=== PATIENT | female | born 1955 | race Caucasian/White ===

== ENCOUNTER → 2017-06-18 09:28 | Outpatient (CLI) | payer OTHER, SELFPAY ==
--- NOTE | 2017-06-18 09:29 | HPBI_ITS ---
MAMMOGRAPHY - BILATERAL SCREENING REASON FOR EXAM: Female, 61 years old. Routine annual screening examination. PERTINENT HISTORY: Non-contributory. TECHNIQUE: Digital bilateral breast karlos (3D mammographic acquisition) in the CC and MLO projections. 2-D mediolateral oblique (MLO) and craniocaudad (CC) views of both breasts were obtained. CAD: Full Field Digital Mammography with Computer Added Detection was performed. COMPARISON: Comparison is made with prior examination dated February 15, 2016. FINDINGS: Breast Composition: There are scattered areas of fibroglandular density. Stable benign-appearing bilateral axillary lymph nodes. Stable appearance of the small nodular densities in the upper outer aspects of both breasts. Prior ultrasound demonstrated these to be small cysts. No other significant abnormalities are identified. There has been no significant change since the prior study. HPBI/SCREENING MAMM (CAD), BILAT IMPRESSION: Stable bilateral screening mammogram. Yearly follow-up mammogram recommended. (A) ASSESSMENT CATEGORY: BIRADS Category 2: Benign. A letter regarding these results will be sent to the patient by the facility within 30 days. Approximately 10% of breast cancers are not detected by mammography. A normal mammogram should not delay biopsy of a clinically suspicious abnormality. [id number] Electronically Signed: Adam Lee MD at 11:33 EST Tel [phone], Service support ,
--- NOTE | 2017-06-18 09:44 | HPBD_ITS ---
STUDY: DUAL ENERGY X-RAY ABSORPTIOMETRY / DXA REASON FOR EXAM: Female, 61 years old. The patient is postmenopausal. No loss of height. TECHNIQUE: Bone Mineral Density (BMD) measurements of lumbar spine and bilateral hips were obtained. COMPARISON: None. FINDINGS: Lumbar Spine (L1-L4): g/cm2 (1.110) / T-score (-0.6) / Z-score (0.8) Findings are suggestive of normal bone density with a low fracture risk. Left Femur Total: g/cm2 (0.889) / T-score (-0.9) / Z-score (0.1) Left Femoral Neck: g/cm2 (0.789) / T-score (-1.8) / Z-score (-0.4) Right Femur Total: g/cm2 (0.916) / T-score (-0.7) / Z-score (0.4) Right Femoral Neck: g/cm2 (0.846) / T-score (-1.4) / Z-score (0.0) HPBD/Dexa Bone Density Study (HP) IMPRESSION: The patient is considered osteopenic as outlined below according to World Leno Organization (WHO) criteria with a moderate fracture risk. Reference Information: The T-score is the number of standard deviations above or below the standard which is normal for young adults at their peak bone mineral density. The World Health Organization (WHO) interprets the T-scores as follows: Above -1 Normal bone density Between -1 and -2.5 Osteopenia Equal to / or below -2.5 Osteoporosis As a practical clinical guideline, osteopenia may be graded as follows: Mild -1 through -1.5 Moderate -1.6 through -2.0 Severe -2.1 through -2.4 The Z-score is the number of standard deviations above or below age-matched controls. A Z-score of less than -1.5 would be considered abnormal. References: 1. NIH Osteoporosis and Related Bone Diseases http://www.osteo.org 2. International Society for Clinical Densitometry http://www.iscd.org 3. National Osteoporosis Foundation http://www.nof.org Electronically Signed: Adam Lee MD at 11:15 EST Tel [phone], Service support ,
== END ==
PROVIDERS: Family Provider Internal Medicine; PCP Internal Medicine; Visit Provider Internal Medicine
DX: Z12.31 Encounter for screening mammogram for malignant neoplasm of breast (principal); Z78.0 Asymptomatic menopausal state
CPT/HCPCS: 77063; 77067; 77080

== ENCOUNTER → 2018-06-16 | Outpatient (CLI) | payer OTHER, SELFPAY | END | disposition home or self-care (01) | LOC: PSN 11:14 | PROVIDERS: Family Provider Internal Medicine; PCP Internal Medicine; Referring Provider Internal Medicine; Visit Provider Internal Medicine | DX: I49.3 Ventricular premature depolarization (principal) | CPT/HCPCS: 93225; 93226 ==

== ENCOUNTER → 2018-07-09 06:35 | Outpatient (CLI) | payer OTHER, SELFPAY ==
--- NOTE | 2018-07-09 06:43 | ECHOD_ITS ---
Reason For Study: Arrhythmia Procedure This was a 2D Doppler, Color Flow transthoracic echocardiogram. Exam performed in department. Left Ventricle Normal size and thickness. The estimated ejection fraction is 65 %. Stage 1 diastolic dysfunction. No regional wall motion abnormalities noted. Right Ventricle Normal size and thickness. Normal systolic function. Atria Normal left atrium. Normal right atrium. Normal atrial septum. Mitral Valve The mitral valve is structurally normal. No prolapse or stenosis seen. Mild (1+) eccentric mitral valve insufficiency. Tricuspid Valve Normal tricuspid valve. Trivial tricuspid valve insufficiency. Right ventricular systolic pressure estimated to be 27 mmHg. Aortic Valve Normal aortic valve. Trisinus/trileaflet aortic valve. Pulmonic Valve Normal pulmonic valve. Great Vessels Normal aortic root. Normal arch. Normal inferior vena cava. Inferior vena cava collapse with sniff. Pericardium/Pleural No pericardial effusion. MMode/2D Measurements & Calculations LVIDd: 5.0 cm IVSd: 0.94 cm Ao root diam: 2.6 cm LVIDs: 3.1 cm LVPWd: 0.88 cm RVDd: 2.6 cm FS: 38.0 % LAV(MOD-bp): 46.6 ml LVAd ap4: 19.6 cm2 SV(MOD-sp4): 38.9 ml LAV(MOD-bp) Indexed: 26.1 ml/m2 EDV(MOD-sp4): 54.7 ml LAV(MOD-sp2): 46.8 ml EDV(sp4-el): 56.1 ml LAV(MOD-sp4): 43.4 ml LVAs ap4: 9.6 cm2 ESV(MOD-sp4): 15.8 ml ESV(sp4-el): 15.7 ml EF(MOD-sp4): 71.2 % EF(sp4-el): 71.9 % SV(sp4-el): 40.4 ml LA A4 area: 17.2 cm2 LA dimension(2D): 3.3 cm RA A4 area: 14.0 cm2 Doppler Measurements & Calculations MV E max jose cruz: 72.3 cm/sec Lat Peak E' Jose Cruz: 6.8 cm/sec Med Peak E' Jose Cruz: 5.7 cm/sec MV A max jose cruz: 90.1 cm/sec E/E' lat: 10.7 E/E' med: 12.7 MV E/A: 0.80 Ao V2 max: 135.1 cm/sec LV V1 max: 121.1 cm/sec PA V2 max: 79.3 cm/sec Ao max P.3 mmHg LV V1 max P.9 mmHg Ao V2 mean: 101.2 cm/sec Ao mean P.4 mmHg Ao V2 VTI: 31.3 cm TR max jose cruz: 232.5 cm/sec TR max P.6 mmHg Interpretation Summary The estimated ejection fraction is 65 %. Stage 1 diastolic dysfunction. Mild (1+) eccentric mitral valve insufficiency. Trivial tricuspid valve insufficiency. Right ventricular systolic pressure estimated to be 27 mmHg. Compard to echo report dated 07/07/2005, no appreciable changes noted. Ordering Physician: Alyson Stanley Referring Physician: Alyson Stanley Performed By: Sherie Ernst, ELIZA, RVT
--- NOTE | 2018-07-09 17:54 | STRESSREP ---
Stress Test Report Exercise myocardial perfusion stress test. 63-year-old lady with a history of abnormal EKG and cardiac arrhythmias. Medications: Fish oil fluticasone Proventil. Stress protocol: Resting EKG demonstrates normal sinus rhythm with a rate of 75 bpm normal intervals are noted resting blood pressure 130/88 mmHg. The patient exercised according to regular Sree protocol total duration of 7 minutes. Patient completed 1 minute into stage III of the Sree protocol. The patient maintained sinus rhythm until approximately 6 minutes and 52 seconds into the exercise. The patient then went into a narrow complex tachycardia with a rate of approximately 226 bpm. The test was terminated at this stage. This lasted for approximately 45 seconds. It appeared to be consistent with a narrow complex tachycardia with a rate of approximately 210 bpm. The patient then broke into a sinus tachycardia with a rate of 146 bpm. Occasional premature atrial complexes were noted. At rest and during peak exercise upsloping ST changes only were noted we did not meet the criteria for ischemia. The resting blood pressure 130/88 with a peak blood pressure 158/84. No clinical angina was noted. The conversion from the supraventricular tachyarrhythmia to the normal sinus rhythm was from a vagal maneuver of coughing. Myocardial perfusion protocol. 11.9 mCi of technetium 99 sestamibi was injected at rest. The patient exercised according to regular Sree protocol for 7 minutes at peak exercise 33.6 mCi of technetium 99m sestamibi was injected stress images were obtained stress and rest images were reconstructed and compared in the short axis vertical long horizontal long axis. Gated images were also obtained Perfusion SPECT analysis: Review of the stress images demonstrate normal uptake of tracer noted in all areas of the myocardium. There are no obvious perfusion defects to suggest reversibility or ischemia. Gated SPECT analysis: The gated ejection fraction is noted to be 79%. Conclusion: Normal exercise myocardial perfusion stress test at a moderate workload. Supraventricular tachyarrhythmia noted spontaneously converting with vagal maneuvers. Preserved ejection fraction.
== END ==
PROVIDERS: Family Provider Internal Medicine; PCP Internal Medicine; Referring Provider Internal Medicine; Visit Provider Internal Medicine
DX: I49.9 Cardiac arrhythmia, unspecified (principal)
CPT/HCPCS: 78452; 93017; 93306; A9500; A4216

== ENCOUNTER → 2018-07-11 09:15 | Outpatient (CLI) | payer OTHER, SELFPAY ==
--- NOTE | 2018-07-11 09:19 | BI_ITS ---
MAMMOGRAPHY - BILATERAL SCREENING REASON FOR EXAM: Female, 63 years old. Routine annual screening examination. PERTINENT HISTORY: Non-contributory. TECHNIQUE: Digital bilateral breast karlos (3D mammographic acquisition) in the CC and MLO projections. 2-D mediolateral oblique (MLO) and craniocaudad (CC) views of both breasts were obtained. CAD: Full Field Digital Mammography with Computer Added Detection was performed. COMPARISON: Comparison is made with prior examination dated June 18, 2017 and February 15, 2016. FINDINGS: Breast Composition: There are scattered areas of fibroglandular density. There are no dominant masses or suspicious calcifications. Stable appearance of the small bilateral breast nodules seen in both breasts. Prior sonogram demonstrated these to be cysts. Stable benign-appearing bilateral axillary lymph nodes. No other significant abnormalities are identified. There has been no significant change since the prior study. BI/SCREENING MAMM (CAD), BILAT IMPRESSION: Stable bilateral screening mammogram. Yearly follow-up mammogram recommended. (A) ASSESSMENT CATEGORY: BIRADS Category 2: Benign. A letter regarding these results will be sent to the patient by the facility within 30 days. Approximately 10% of breast cancers are not detected by mammography. A normal mammogram should not delay biopsy of a clinically suspicious abnormality. [id number] Electronically Signed: Adam Lee, at 10:30 EDT , Service support ,
== END ==
PROVIDERS: Family Provider Internal Medicine; PCP Internal Medicine; Referring Provider Internal Medicine; Visit Provider Internal Medicine
DX: Z12.31 Encounter for screening mammogram for malignant neoplasm of breast (principal)
CPT/HCPCS: 77063; 77067

== ENCOUNTER → 2018-12-02 | Outpatient (CLI) | payer OTHER, SELFPAY ==
[2018-07-11 12:28] VITALS: BMI 32.5
--- NOTE | 2018-12-02 13:39 | RAD_ITS ---
STUDY: X-RAY - LEFT FOOT CLINICAL: Female, 63 years old. Swelling and bruising of the foot following injury. TECHNIQUE: 3 view(s) of the foot. COMPARISON: Comparison is made with prior study of October 27, 2010. FINDINGS: There is an enthesophyte involving the posterior superior calcaneus at the site of insertion of the Achilles tendon. Normal visualized subtalar, talonavicular, calcaneocuboid, tarsal and tarsometatarsal articulations. Nondisplaced comminuted fractures at the base of the second third and fourth metatarsals. There is degenerative arthrosis of the metatarsophalangeal joint of the hallux with a hallux valgus deformity. Normal tibial and fibular sesamoid bones. Normal interphalangeal joint of the great toe. Normal phalanges of the great toe. Normal second through fifth metatarsophalangeal joints. Normal interphalangeal joints and phalanges of the lesser toes. Diffuse soft tissue swelling. RAD/Foot min 3 Views IMPRESSION: Nondisplaced transverse fracture involving the base of the second third and fourth metatarsals. Soft tissue swelling. Electronically Signed: Adam Lee, at 14:12 EDT , Service support ,
== END | disposition home or self-care (01) ==
LOC: HPRAD 13:36
PROVIDERS: Family Provider Internal Medicine; PCP Internal Medicine; Referring Provider Internal Medicine; Visit Provider Internal Medicine
DX: M79.672 Pain in left foot (principal)
CPT/HCPCS: 73630

== ENCOUNTER → 2019-01-06 11:17 | Outpatient (CLI) | payer OTHER, SELFPAY ==
[2018-07-11 12:28] VITALS: BMI 32.5
--- NOTE | 2019-01-06 11:21 | RAD_ITS ---
STUDY: X-RAY - LEFT FOOT CLINICAL: Female, 63 years old. Follow-up fracture TECHNIQUE: 3 view(s) of the foot. COMPARISON: 12/02/2018 FINDINGS: Normal talus, calcaneus, and tarsal bones. Normal visualized subtalar, talonavicular, calcaneocuboid, tarsal and tarsometatarsal articulations. Healing nondisplaced transverse fractures of the base of the second, third, and fourth metatarsal bones with some sclerosis and bony bridging. Normal metatarsophalangeal joint of the great toe. Normal tibial and fibular sesamoid bones. Normal interphalangeal joint of the great toe. Normal phalanges of the great toe. Normal second through fifth metatarsophalangeal joints. Normal interphalangeal joints and phalanges of the lesser toes. The soft tissue structures are unremarkable. RAD/Foot min 3 Views IMPRESSION: Healing nondisplaced transverse fractures of the base of the left second, third, and fourth metatarsal bones. Electronically Signed: Romaine Bradley MD at 8:32 EDT Tel , Service support ,
== END ==
PROVIDERS: Family Provider Internal Medicine; PCP Internal Medicine; Referring Provider Podiatrist; Visit Provider Podiatrist
DX: S92.302D Fracture of unspecified metatarsal bone(s), left foot, subsequent encounter for fracture with routine healing (principal)
CPT/HCPCS: 73630

== ENCOUNTER 2021-06-16 13:20 | Emergency (ER) | payer MEDICARE, OTHER, SELFPAY ==
[2021-06-16 13:21] VITALS: BP 149/83; PULSE 76; RESP 15; TEMP 36.3; O2SAT 97; BMI 31.9
--- NOTE | 2021-06-16 13:40 | EDS_ITS ---
HPI History of Present Illness Chief Complaint: Fall Detail of Chief Complaint: Fall with injury to left wrist Informant: patient Narrative Narrative: Patient presents the emergency department after sustaining a mechanical fall this morning around 10 AM. Patient states that she slipped and fell forward and attempted to catch herself with her left wrist injuring it. Patient is right-hand dominant. She denies striking her head or loss c onsciousness. She denies neck pain or chest pain or abdominal pain. [facility] Medical History (Updated 06/16/21 @ 14:[address] Andrae Stephens DO) Anemia Anxiety Arthritis Asthma Elevated LFTs Frequent PVCs GERD (gastroesophageal reflux disease) Hyperlipidemia Intermittent palpitations Liver nodule Lung nodule Obesity Paroxysmal supraventricular tachycardia Premature ventricular contractions Home Medications cholecalciferol (vitamin D3) 1,250 mcg (50,000 unit) capsule 50,000 unit PO QWEEK 07/10/18 [History Last Taken Unknown] joint supplement PO 07/11/18 [History Last Taken Unknown] omega-3 fatty acids 1,000 mg capsule 1,000 mg PO DAILY PRN 07/11/18 [History Last Taken Unknown] fluticasone propionate 50 mcg/actuation nasal spray,suspension 1 spray INTRANASAL DAILY ml 10/06/19 [History Last Taken Unknown] citalopram 10 mg tablet 10 mg PO DAILY tab 12/16/20 [History Last Taken Unknown] famotidine 20 mg tablet 20 mg PO BID tab 12/16/20 [History Last Taken Unknown] hydrocodone-acetaminophen 1 tab PO Q4H PRN PRN 2 Days #10 tablet 06/16/21 [Rx Last Taken Unknown] Allergy/AdvReac Type Severity Reaction Status Date / Time guaifenesin [From Robitussin] AdvReac Rash Verified 12/16/20 10:33 pseudoephedrine HCl AdvReac Swelling Verified 12/16/20 10:33 [From Actifed] triprolidine HCl AdvReac Swelling Verified 12/16/20 10:33 [From Actifed] Family History Mother Heart disease afib Grandmother Heart disease afib Surgical History History of Social History Smoking Status: Never smoker ROS ROS ED Constitutional Constitutional ED: Reports systems reviewed and no addt'l complaints, except as documented; Denies body ache(s), change in weight or chills Eyes Eyes: Denies acute decrease in peripheral vision, change in vision, double vision or loss of vision ENT ENT ED: Reports none; Denies ear pain, lip swelling, loss taste/smell, neck pain, otalgia or sore throat Cardiovascular Cardiovascular: Reports none; Denies abdominal pain, chest pain with activity, leg edema, lightheadedness, palpitations, rapid heart rate or syncope Respiratory/Chest Respiratory/Chest: Reports none; Denies change in mental status, dry cough, dy spnea, hemoptysis, shortness of breath at rest or shortness of breath with exertion Gastrointestinal Gastrointestinal: Reports none; Denies abdominal pain, change in stool character, diarrhea, hematemesis, hematochezia, melena, rectal bleeding or vomiting Genitourinary Genitourinary ED: Reports none; Denies abdominal discomfort, anuria, dysuria, genital pain or polyuria Musculoskeletal Musculoskeletal: Reports none and other Details: Left wrist pain ; Denies arthralgias, back pain, difficulty walking, extremity pain, muscle weakness or myalgias Integumentary Reports none; Denies abscess or rash Neurologic Neurologic: Reports none; Denies abnormal gait, confusion, focal weakness, frequent falls, headache(s), loss of vision, numbness, paresthesias, radicular pain, vertigo or weakness Psychiatric Psychiatric: Reports systems reviewed and no addt'l complaints, except as documented and none; Denies behavioral changes, confusion, difficulty concentrating, hallucinations, suicidal ideation, tactile hallucinations or visual hallucinations Endocrine Endocrinology: Denies none, cold intolerance, excessive sweating, fatigue or heat intolerance Hematologic/Lymphatic Hematologic/Lymphatic: Reports none; Denies anemia, easy bleeding or easy b ruising Allergic/Immunologic Allergic/Immunologic ED: Denies as per HPI, none, lip swelling, mouth swelling, throat swelling, tongue swelling or hives EXAM Physical Exam Const Vital Signs: 06/16/21 13:21 Temperature 97.3 F L Temperature Source Temporal Pulse Rate 76 Respiratory Rate 15 Blood Pressure 149/83 H Blood Pressure Mean 105 Pulse Ox 97 Oxygen Delivery Method Room Air Positive well nourished and well developed General Appearance ED: well developed and NAD HEENT Reports TM's clear and moist mucous membranes normocephalic and atraumatic; Negative for trauma or tenderness Tympanic Membrane ED: Yes TM's clear Eyes PERRL and EOMs intact bilaterally General Eye ED: Negative for pale conjunctiva or scleral icterus Neck no lymphadenopathy, supple and no JVD General: Negative for tenderness Chest Wall inspection of chest normal and palpation of chest normal Chest: Negative for tenderness Resp normal respiratory effort and clear to auscultation bilaterally Effort and Inspection: Negative for respiratory distress or pain with movement Auscultation: Negative for rhonchi, wheezes or diminished lung sounds Cardio regular rate, regular rhythm, S1 normal heart sound, S2 normal heart sound and no murmurs Peripheral Pulses: pulses 2+ throughout GI normal to inspection, nondistended, normoactive bowel sounds, soft to palpation, non-tender, non-distended and no masses Back/Spine no CVA tenderness and no thoracic nor lumbar tenderness Extremity Extremity Narrative: Evaluation of the left wrist reveals diffuse soft tissue swelling with tenderness over the distal radius. Patient has limited range of motion flexion extension secondary to pain. She is neurovascular intact distally with normal range of motion in all digits. Patient has no pain at the elbow. General Extremety ED: Negative for edema General Extremity: Negative for edema Neuro oriented x3, CN's II-XII intact bilaterally, no sensory deficits noted and gait normal Sensorium / Orientation: awake, alert, oriented to person, oriented to place and oriented to time Motor Exam: strength 5/5 throughout and strength abnormal Psych mental status grossly normal Skin no rashes or lesions noted and no wounds MDM MDM MDM Narrative Medical decision making narrative: Patient was placed in an AP splint that was fabricated by myself out of [employer]. Case was discussed with orthopedic surgeon on-call Dr. Edward Dye who evaluated the x-rays and will see patient in the office. Radiography Diagnostic Testing: Three-view x-rays of the left wrist showed a comminuted fracture of the distal radius that is intra-articular with no significant displacement noted. Official report from radiology pending. Discharge Plan Triage Chief Complaint: Fall ED Provider: Andrae Stephens Dx/Rx/DC Orders Clinical Impression: Distal radial fracture Instructions: ED Colles Fracture No Reduction ... Prescriptions: New hydrocodone-acetaminophen [hydrocodone-acetaminophen] 1 TABLET tablet 1 tab PO Q4H PRN PRN (Reason: Pain) 2 Days Qty: 10 RF: 0 No Action joint supplement PO RF: 0 cholecalciferol (vitamin D3) 50,000 unit capsule 50,000 unit PO QWEEK RF: 0 omega-3 fatty acids [Fish Oil Concentrate] 1,000 mg capsule 1,000 mg PO DAILY PRNRF: 0 fluticasone propionate 50 mcg/actuation spray,suspension 1 spray INTRANASAL DAILY RF: 0 famotidine 20 mg tablet 20 mg PO BID RF: 0 citalopram 10 mg tablet 10 mg PO DAILY RF: 0 Primary Care Provider: Alyson Stanley Referrals: Alyson Stanley DO [Primary Care Provider] - Edward Dye MD [STAFF PHYSICIAN] - 3-5 Days Disposition Disposition: Home, Self Care
--- NOTE | 2021-06-16 14:02 | RAD_ITS ---
STUDY: X-RAY - LEFT WRIST REASON FOR EXAM: Left wrist injury today. TECHNIQUE: 3 view(s) of the wrist were obtained. COMPARISON: None. FINDINGS: There is osteopenia. There is a nondisplaced fracture of the distal radius. Normal radiocarpal articulation. Normal distal radioulnar articulation. Normal carpal bones. There is mild joint space narrowing of the triscaphe articulation. There is joint space narrowing and subchondral cystic change of the carpometacarpal articulation of the thumb. Normal second through fifth carpometacarpal articulations. Normal visualized metacarpal bones. There is soft tissue swelling. RAD/Wrist min 3 Views IMPRESSION: Nondisplaced distal radial fracture. 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 Electronically Signed: Kamari Arenas MD at 14:42 EST ,
== END 2021-06-16 14:27 | disposition home or self-care (01) ==
PROVIDERS: Emergency Provider Emergency Medicine; PCP Internal Medicine; Visit Provider Emergency Medicine
DX: S52.502A Unspecified fracture of the lower end of left radius, initial encounter for closed fracture (principal); W01.0XXA Fall on same level from slipping, tripping and stumbling without subsequent striking against object, initial encounter; E78.5 Hyperlipidemia, unspecified; D64.9 Anemia, unspecified; K21.9 Gastro-esophageal reflux disease without esophagitis; F41.9 Anxiety disorder, unspecified; E66.9 Obesity, unspecified; Z79.899 Other long term (current) drug therapy
CPT/HCPCS: 29126; 29125; 73110; 99282

== ENCOUNTER 2021-07-28 12:49 | Outpatient (CLI) | payer MEDICARE, OTHER, SELFPAY ==
--- NOTE | 2021-07-28 12:55 | VDUE_ITS ---
Reason For Study: Swelling Left Proximal Left jugular vein is spontaneous, widely patent, phasic, with no intraluminal echogenicity noted. Left subclavian vein is spontaneous, widely patent, phasic, with no intraluminal echogenicity noted. Left Arm Left axillary vein is spontaneous, patent, phasic, competent, compressible and demonstrates augmentation. Left brachial vein is compressible. Left cephalic vein is compressible. Left basilic vein is compressible. Left Lower Arm Left radial vein is compressible. Left ulnar vein is compressible. Patient Safety Preliminary report to Jaden. VL/Venous Duplex US, Unilateral Interpretation Summary Deep veins of the left upper extremity are patent and compressible segmentally. There is no evidence of deep vein thrombosis. The superficial veins of the left upper extremity, the basilic and cephalic veins, are patent and compressible. There is no evidence of left upper extremit y superficial thrombophlebitis involving the veins imaged. Ordering Physician: Alyson Stanley Referring Physician: Alyson Stanley Performed By: Daisy Montana RVAdore ?
== END 2021-07-28 23:59 | disposition home or self-care (01) ==
LOC: CVS 12:50
PROVIDERS: PCP Internal Medicine; Referring Provider Internal Medicine; Visit Provider Internal Medicine
DX: M79.89 Other specified soft tissue disorders (principal)
CPT/HCPCS: 93971

== ENCOUNTER → 2021-11-15 | Outpatient (CLI) | payer MEDICARE, OTHER, SELFPAY ==
--- NOTE | 2021-11-15 14:52 | RAD_ITS ---
EXAM: XR LEFT SHOULDER COMPLETE, 2 OR MORE VIEWS CLINICAL INDICATION: PAIN TECHNIQUE: Two or more views of the left shoulder. This report was created using [employer] report generation technology. COMPARISON: None. FINDINGS: BONES/JOINTS: Degenerative changes of the left shoulder with inferiorly projecting osteophyte at the inferior glenohumeral joint on external rotation view, minimal sclerotic changes of the humeral head. No narrowing of the subacromial space or humeral head subluxation, no evidence of rotator cuff impingement or tear. No acute fracture. SOFT TISSUES: Unremarkable. No soft tissue swelling or gas. No radiopaque foreign body. LUNGS AND PLEURAL SPACES: Mild linear atelectasis or scar in the left lateral mid to lower lung and a few calcified granulomas in the left lung. RAD/Shoulder min 2 Views IMPRESSION: Mild-moderate degenerative changes of the shoulder, especially at the inferior glenohumeral joint. Electronically Signed: Caroline Johnson MD at 5:32 EDT ,
== END | disposition home or self-care (01) ==
PROVIDERS: PCP Internal Medicine; Referring Provider Internal Medicine; Visit Provider Internal Medicine
DX: M25.512 Pain in left shoulder (principal)
CPT/HCPCS: 73030

== ENCOUNTER → 2021-12-01 | Outpatient (CLI) | payer MEDICARE, OTHER, SELFPAY | END | disposition home or self-care (01) | LOC: PSN 11:37 | PROVIDERS: PCP Internal Medicine; Referring Provider Internal Medicine; Visit Provider Internal Medicine | DX: I49.9 Cardiac arrhythmia, unspecified (principal) | CPT/HCPCS: 93225; 93226 ==

== ENCOUNTER → 2021-12-19 | Outpatient (CLI) | payer MEDICARE, OTHER, SELFPAY ==
--- NOTE | 2021-12-19 14:11 | BI_ITS ---
MAMMOGRAPHY - BILATERAL SCREENING REASON FOR EXAM: Female, 66 years old. Routine annual screening examination. PERTINENT HISTORY: Non-contributory. TECHNIQUE: Digital bilateral breast jimmy (3D mammographic acquisition) in the CC and MLO projections. 2-D mediolateral oblique (MLO) and craniocaudad (CC) views of both breasts were obtained. CAD: Full Field Digital Mammography with Computer Added Detection was performed. COMPARISON: Comparison is made with prior study dated 07/11/2018 and separate . FINDINGS: Breast Composition: There are scattered areas of fibroglandular density. There are no dominant masses or suspicious calcifications. Once again, there are small bilateral well-defined nodular densities in the upper outer quadrant of both breasts more prominent on the left side. Prior sonogram demonstrated these to be small cysts. Stable benign-appearing bilateral axillary lymph nodes. No other significant abnormalities are identified. There has been no significant change since the prior study. BI/SCRN MAMM (CAD)W/JIMMY BILAT IMPRESSION: Stable bilateral screening mammogram. Yearly follow-up mammogram recommended. (A) ASSESSMENT CATEGORY: BIRADS Category 2: Benign. A letter regarding these results will be sent to the patient by the facility within 30 days. Approximately 10% of breast cancers are not detected by mammography. A normal mammogram should not delay biopsy of a clinically suspicious abnormality. [id number] Electronically Signed: Adam Lee MD at 15:25 EDT ,
--- NOTE | 2021-12-19 14:17 | BD_ITS ---
STUDY: DUAL ENERGY X-RAY ABSORPTIOMETRY / DXA REASON FOR EXAM: Female, 66 years old. Z780. Patient is postmenopausal. TECHNIQUE: Bone Mineral Density (BMD) measurements of lumbar spine and bilateral hips were obtained. COMPARISON: Comparison is made with prior study 06/18/2017. FINDINGS: Lumbar Spine (L1-L4): g/cm2 (0.966) / T-score (0.7) / Z-score (1.2) Findings are suggestive of normal bone density with a low fracture risk. Left Femur Total: g/cm2 (0.813) / T-score (-1.1) / Z-score (0.3) Left Femoral Neck: g/cm2 (0.6 x 6) / T-score (-1.7) / Z-score (-0.1) Right Femur Total: g/cm2 (0.854) / T-score (-0.7) / Z-score (0.6) Right Femoral Neck: g/cm2 (0.705) / T-score (-1.3) / Z-score (0.3) The T-Scores on the most recent prior examination were: Lumbar Spine (L1-L4): There has been worsening of bone density since the previous examination. Left Femur Total: which represents a worsening of 1.6%. Right Femur Total: which represents an improvement of 0.1%. BD/Dexa Bone Density Study IMPRESSION: The patient is considered osteopenic as outlined below according to World Leno Organization (WHO) criteria with a moderate fracture risk. There has been worsening of bone density since the previous examination. Reference Information: The T-score is the number of standard deviations above or below the standard which is normal for young adults at their peak bone mineral density. The World Health Organization (WHO) interprets the T-scores as follows: Above -1 Normal bone density Between -1 and -2.5 Osteopenia Equal to / or below -2.5 Osteoporosis As a practical clinical guideline, osteopenia may be graded as follows: Mild -1 through -1.5 Moderate -1.6 through -2.0 Severe -2.1 through -2.4 The Z-score is the number of standard deviations above or below age-matched controls. A Z-score of less than -1.5 would be considered abnormal. References: 1. NIH Osteoporosis and Related Bone Diseases www osteo.org 2. International Society for Clinical Densitometry www iscd.org 3. National Osteoporosis Foundation www nof.org Electronically Signed: Adam Lee MD at 11:08 EDT ,
== END | disposition home or self-care (01) ==
LOC: OPBD 14:09
PROVIDERS: PCP Internal Medicine; Visit Provider Internal Medicine
DX: Z12.31 Encounter for screening mammogram for malignant neoplasm of breast (principal); Z78.0 Asymptomatic menopausal state; M85.80 Other specified disorders of bone density and structure, unspecified site
CPT/HCPCS: 77063; 77067; 77080

== ENCOUNTER → 2021-12-22 | Outpatient (CLI) | payer MEDICARE, OTHER, SELFPAY ==
--- NOTE | 2021-12-22 13:45 | ECHOD_ITS ---
Reason For Study: AFIB Procedure This was a 2D Doppler, Color Flow transthoracic echocardiogram. Exam performed in department. Left Ventricle Normal LV size. The estimated ejection fraction is 55 %. Unable to assess diastolic dysfunction. No regional wall motion abnormalities noted. Right Ventricle Normal RV size. Normal systolic function. Atria Normal left atrium. Normal right atrium. No doppler evidence for ASD. Mitral Valve There is moderate mitral annular calcification. There is no mitral valve stenosis. Trivial mitral valve insufficiency. Tricuspid Valve There is no tricuspid stenosis. Trivial tricuspid valve insufficiency. Unable to estimate RV systolic pressure due to insufficient tricuspid regurgitant envelope. Aortic Valve Trisinus/trileaflet aortic valve. There is no aortic stenosis. No aortic valve insufficiency. Pulmonic Valve There is no pulmonic valvular stenosis. No pulmonic valve insufficiency. Great Vessels Normal aortic root. Pericardium/Pleural No pericardial effusion. MMode/2D Measurements & Calculations LVIDd: 4.9 cm IVSd: 0.80 cm Ao root diam: 3.4 cm LVIDs: 2.9 cm LVPWd: 0.65 cm RVDd: 3.4 cm FS: 40.9 % LAV(MOD-bp): 56.2 ml LVAd ap4: 21.2 cm2 SV(MOD-sp4): 32.9 ml LAV(MOD-bp) Indexed: 31.9 ml/m2 LVLd ap4: 6.3 cm LAV(MOD-sp2): 52.3 ml EDV(MOD-sp4): 57.5 ml LAV(MOD-sp4): 59.6 ml EDV(sp4-el): 60.0 ml LVAs ap4: 11.8 cm2 LVLs ap4: 5.2 cm ESV(MOD-sp4): 24.6 ml ESV(sp4-el): 23.0 ml EF(MOD-sp4): 57.2 % EF(sp4-el): 61.7 % SV(sp4-el): 37.0 ml LA A4 area: 20.1 cm2 LA dimension(2D): 3.4 cm RA A4 area: 13.9 cm2 Time Measurements MV dec time: 0.18 sec Doppler Measurements & Calculations MV E max jose cruz: 91.2 cm/sec Lat Peak E' Jose Cruz: 7.9 cm/sec Med Peak E' Jose Cruz: 7.3 cm/sec MV A max jose cruz: 74.8 cm/sec E/E' lat: 11.5 E/E' med: 12.6 MV E/A: 1.2 MV V2 max: 106.0 cm/sec Ao V2 max: 164.7 cm/sec MV max P.5 mmHg MV dec slope: 498.2 cm/sec2 Ao max P.9 mmHg MV V2 mean: 65.1 cm/sec Ao V2 mean: 110.0 cm/sec MV mean P.9 mmHg Ao mean P.6 mmHg MV V2 VTI: 36.1 cm Ao V2 VTI: 37.8 cm LV V1 max: 129.1 cm/sec PA V2 max: 84.0 cm/sec TR max jose cruz: 265.6 cm/sec LV V1 max P.7 mmHg TR max P.2 mmHg LV V1 mean P.7 mmHg LV V1 mean: 89.6 cm/sec LV V1 VTI: 29.9 cm ECHO/Echo Complete Interpretation Summary The estimated ejection fraction is 55 %. Unable to assess diastolic dysfunction. Trivial mitral valve insufficiency. Ordering Physician: Alyson Stanley Referring Physician: Alyson Stanley Performed By: Shannan Frost RCS
== END | disposition home or self-care (01) ==
LOC: CVS 13:43
PROVIDERS: PCP Internal Medicine; Referring Provider Internal Medicine; Visit Provider Internal Medicine
DX: I48.19 Other persistent atrial fibrillation (principal)
CPT/HCPCS: 93306

== ENCOUNTER → 2022-03-16 | Outpatient (CLI) | payer MEDICARE, OTHER, SELFPAY ==
--- NOTE | 2022-03-16 14:44 | VDLE_ITS ---
Reason For Study: LEG PAIN RIGHT LEFT GSV is normal. CFV is compressible, spontaneous, phasic, CFV is compressible, spontaneous, phasic, competent, and demonstrates normal competent and demonstrates normal augmentation. augmentation. FV is compressible, spontaneous, phasic, competent and demonstrates normal augmentation. POP V is compressible, spontaneous, phasic, competent and demonstrates normal augmentation. T/P Trunk is compressible. PTV is compressible. RT PerV is compressible. Procedure This is a venous duplex using B-mode, color flow and spectral Doppler. Exam performed in department. The exam was diagnostic. A preliminary report was called and/or faxed to Dr. Stanley. VL/Venous Duplex US, Unilateral Interpretation Summary Deep veins of the right lower extremity are patent and compressible segmentally . There is no evidence of right lower extremity deep vein thrombosis. Valvular competence nitin ears intact within the proximal deep venous system on the right . The right great saphenous vein a ppears patent and compressible segmentally. Ordering Physician: Alyson Stanley Referring Physician: Alyson Stanley Performed By: Henry Siddiqui RVT
== END | disposition home or self-care (01) ==
LOC: CVS 14:42
PROVIDERS: PCP Internal Medicine; Referring Provider Internal Medicine; Visit Provider Internal Medicine
DX: M79.604 Pain in right leg (principal)
CPT/HCPCS: 93971

== ENCOUNTER → 2022-05-09 | Outpatient (CLI) | payer MEDICARE, OTHER, SELFPAY ==
--- NOTE | 2022-05-09 13:28 | MRI_ITS ---
STUDY: MRI RIGHT KNEE REASON FOR EXAM: Female, 66 years old. Pain TECHNIQUE: Standardized fat and water weighted pulse sequences were obtained in all 3 orthogonal planes. COMPARISON: X-ray February 20, 2022 FINDINGS: There is medial meniscus tear of the posterior horn adjacent to the meniscal root. There is diffuse, less than 50% thickness articular cartilage loss of the medial femorotibial compartment. There is mild osteoarthritic spur formation of the medial knee compartment. There is marrow edema of the medial tibial plateau. Normal medial collateral ligamentous complex (MCL). Normal distal semimembranosus, gracilis and semitendinosus tendons. There is partial tear of the posterior horn of the lateral meniscus adjacent to the meniscal root , series 7 image 14/32 and 15/32. There is diffuse, less than 50% thickness articular cartilage loss of the lateral femorotibial compartment. There is moderate osteoarthritic spur formation of the lateral knee compartment. Normal proximal tibiofibular articulation. Normal lateral collateral (fibular) ligament. Normal popliteus tendon. Normal biceps femoris tendon. Normal anterior cruciate ligament (ACL). Normal posterior cruciate ligament (PCL). There is arthrosis of the patellofemoral articulation. There is diffuse, full thickness articular cartilage loss of the patellofemoral compartment. There is mild spurring. Normal medial and lateral patellar retinaculum. Normal quadriceps tendon. Normal patellar tendon. Normal Hoffa''s fat pad. There is a moderate volume joint effusion. The soft tissues are unremarkable. The otherwise visualized osseous structures are unremarkable. MRI/Lower Ext Joint Only (Routine) IMPRESSION: Medial meniscus tear. Lateral meniscus tear. Degenerative change. Stress fracture/injury of the medial tibial plateau. Joint effusion. Electronically Signed: Bernabe Huggins MD at 20:05 EST ,
== END | disposition home or self-care (01) ==
LOC: MRI 13:17
PROVIDERS: PCP Internal Medicine; Referring Provider Internal Medicine; Visit Provider Internal Medicine
DX: M79.604 Pain in right leg (principal)
CPT/HCPCS: 73721

== ENCOUNTER → 2022-12-25 | Outpatient (CLI) | payer MEDICARE, OTHER, SELFPAY ==
--- NOTE | 2022-12-25 10:23 | BI_ITS ---
MAMMOGRAPHY - BILATERAL SCREENING REASON FOR EXAM: Female, 67 years old. Routine annual screening examination. PERTINENT HISTORY: Non-contributory. TECHNIQUE: Digital bilateral breast jimmy (3D mammographic acquisition) in the CC and MLO projections. 2-D mediolateral oblique (MLO) and craniocaudad (CC) views of both breasts were obtained. CAD: Full Field Digital Mammography with Computer Added Detection was performed. COMPARISON: Comparison is made with prior study December 19, 2021 and July 11, 2018. FINDINGS: Breast Composition: There are scattered areas of fibroglandular density. There are no dominant masses or suspicious calcifications. Stable bilateral nodular densities in the upper outer quadrant of the left breast as well as in the central deep portion of the right breast. Prior sonogram demonstrated these to be small cysts. Stable fat containing lymph nodes in both axilla. No other significant abnormalities are identified. There has been no significant change since the prior study. BI/SCRN MAMM (CAD)W/JIMMY BILAT IMPRESSION: Stable bilateral screening mammogram. Yearly follow-up mammogram recommended. (A) ASSESSMENT CATEGORY: BIRADS Category 2: Benign. A letter regarding these results will be sent to the patient by the facility within 30 days. Approximately 10% of breast cancers are not detected by mammography. A normal mammogram should not delay biopsy of a clinically suspicious abnormality. [id number] Electronically Signed: Adam Lee MD at 9:12 EDT ,
== END | disposition home or self-care (01) ==
LOC: OPBI 09:24
PROVIDERS: PCP Internal Medicine; Referring Provider Internal Medicine; Visit Provider Internal Medicine
DX: Z12.31 Encounter for screening mammogram for malignant neoplasm of breast (principal)
CPT/HCPCS: 77063; 77067

== ENCOUNTER → 2023-04-09 | Outpatient (CLI) | payer MEDICARE, OTHER, SELFPAY | END | disposition home or self-care (01) | LOC: PSN 13:24 | PROVIDERS: PCP Internal Medicine; Referring Provider Internal Medicine; Visit Provider Internal Medicine | DX: I48.91 Unspecified atrial fibrillation (principal) | CPT/HCPCS: 93225; 93226 ==

== ENCOUNTER → 2024-03-11 | Outpatient (CLI) | payer MEDICARE, OTHER, SELFPAY | END | disposition home or self-care (01) | LOC: PSN 10:55 | PROVIDERS: PCP Internal Medicine; Referring Provider Internal Medicine; Visit Provider Internal Medicine | DX: Z01.810 Encounter for preprocedural cardiovascular examination (principal); R00.0 Tachycardia, unspecified | CPT/HCPCS: 93225; 93226; 93306 ==

== ENCOUNTER → 2024-04-08 | Outpatient (CLI) | payer MEDICARE, OTHER, SELFPAY ==
--- NOTE | 2024-04-08 08:52 | AAAS_ITS ---
Reason For Study: Screening Aorta Measurements Aorta Doppler Measurements Proximal aorta measures1.66 x 1.64cm. in cross- Peak systolic flow velocities within the proximal sectional axis. aorta measure 79.6 cm/sec. Proximal aorta measures1.70cm. in longitudinal Peak systolic flow velocities within the mid aorta axis. measure 88.6 cm/sec. Mid aorta measures1.75 x 1.71cm. in cross- Peak systolic flow velocities within the distal sectional axis. aorta measure 77.7 cm/sec. Mid aorta measures1.78cm. in longitudinal axis. Distal aorta measures1.77 x 1.77cm. in cross- sectional axis. Distal aorta measures1.74cm. in longitudinal axis. Left Iliac Artery Left iliac artery measures 1.38 x 1.38 cm. in the cross-sectional axis. Left iliac artery measures 1.19 cm. in the longitudinal axis. Peak systolic velocity in the left iliac artery measures 66.9 cm/sec. Right Iliac Artery Right iliac artery measures 1.38 x 1.38 cm. in the cross-sectional axis. Right iliac artery measures 1.33 cm. in the longitudinal axis. Peak systolic velocity in the right iliac artery measures 121.2 cm/sec. Procedure Aorta IVC Iliac vasculature or bypass grafts [id number]. Exam performed in department. VL/AAA Screening Interpretation Summary Aorta patent, normal caliber Right iliac artery patent, ectasia to 1.38 cm Left iliac artery patent, ectasia to 1.38 cm Ordering Physician: Alyson Stanley Referring Physician: Alyson Stanley Performed By: Daisy Montana RVT
--- NOTE | 2024-04-08 09:08 | BI_ITS ---
MAMMOGRAPHY - BILATERAL SCREENING REASON FOR EXAM: Female, 68 years old. Routine annual screening examination. PERTINENT HISTORY: Non-contributory. TECHNIQUE: Digital bilateral breast jimmy (3D mammographic acquisition) in the CC and MLO projections. 2-D mediolateral oblique (MLO) and craniocaudad (CC) views of both breasts were obtained. CAD: Full Field Digital Mammography with Computer Added Detection was performed. COMPARISON: Comparison is made with prior study December 25, 2022 and December 19, 2021. FINDINGS: Breast Composition: There are scattered areas of fibroglandular density. There are no dominant masses or suspicious calcifications. Stable bilateral subcentimeter nodular densities in the upper-outer quadrant of the left breast as well as central portion of the right breast. Prior sonogram demonstrating these to be small cysts. Stable bilateral fat containing axillary lymph nodes. No other significant abnormalities are identified. There has been no significant change since the prior study. BI/SCRN MAMM (CAD)W/JIMMY BILAT IMPRESSION: Stable bilateral screening mammogram. Yearly follow-up mammogram recommended. (A) ASSESSMENT CATEGORY: BIRADS Category 2: Benign. A letter regarding these results will be sent to the patient by the facility within 30 days. Approximately 10% of breast cancers are not detected by mammography. A normal mammogram should not delay biopsy of a clinically suspicious abnormality. [id number] Electronically Signed: Adam Lee MD at 11:11 EST ,
--- NOTE | 2024-04-08 09:10 | BD_ITS ---
STUDY: DUAL ENERGY X-RAY ABSORPTIOMETRY / DXA REASON FOR EXAM: Female, 68 years old. Z780 TECHNIQUE: Bone Mineral Density (BMD) measurements of lumbar spine and bilateral hips were obtained. COMPARISON: Comparison is made with prior study December 19, 2021. FINDINGS: Lumbar Spine (L1-L4): g/cm2 (0.916) / T-score (-1.2) / Z-score (0.9) Findings are suggestive of osteopenia with a low fracture risk. Left Femur Total: g/cm2 (0.683) / T-score (-2.1) / Z-score (-0.6) Left Femoral Neck: g/cm2 (0.581) / T-score (-2.4) / Z-score (-0.6) Right Femur Total: g/cm2 (0.725) / T-score (-1.8) / Z-score (-0.3) Right Femoral Neck: g/cm2 (0.587) / T-score (-2.4) / Z-score (-0.6) The T-Scores on the most recent prior examination were: Lumbar Spine (L1-L4): There has been worsening of bone density since the previous examination. Left Femur Total: which represents a worsening of 16%. Right Femur Total: which represents a worsening of 15%. BD/Dexa Bone Density Study IMPRESSION: The patient is considered osteopenic as outlined below according to World Leno Organization (WHO) criteria with a high fracture risk. There has been worsening of bone density since the previous examination. Reference Information: The T-score is the number of standard deviations above or below the standard which is normal for young adults at their peak bone mineral density. The World Health Organization (WHO) interprets the T-scores as follows: Above -1 Normal bone density Between -1 and -2.5 Osteopenia Equal to / or below -2.5 Osteoporosis As a practical clinical guideline, osteopenia may be graded as follows: Mild -1 through -1.5 Moderate -1.6 through -2.0 Severe -2.1 through -2.4 The Z-score is the number of standard deviations above or below age-matched controls. A Z-score of less than -1.5 would be considered abnormal. References: 1. NIH Osteoporosis and Related Bone Diseases www osteo.org 2. International Society for Clinical Densitometry www iscd.org 3. National Osteoporosis Foundation www nof.org Electronically Signed: Adam Lee MD at 12:40 EST ,
== END | disposition home or self-care (01) ==
LOC: US 08:45
PROVIDERS: PCP Internal Medicine; Referring Provider Internal Medicine; Visit Provider Internal Medicine
DX: Z12.31 Encounter for screening mammogram for malignant neoplasm of breast (principal); I71.40 Abdominal aortic aneurysm, without rupture, unspecified; Z78.0 Asymptomatic menopausal state; M85.80 Other specified disorders of bone density and structure, unspecified site
CPT/HCPCS: 76706; 77063; 77067; 77080

== ENCOUNTER 2024-10-06 11:52 | Emergency (ER) | payer MEDICARE, OTHER, SELFPAY ==
[2024-10-06 11:52] VITALS: BP 147/84; PULSE 76; RESP 14; TEMP 36.6; O2SAT 96
[2024-10-06 11:56] VITALS: O2SAT 98
[2024-10-06 12:12] VITALS: PULSE 82; RESP 18
--- NOTE | 2024-10-06 12:14 | EX.ED.GENINJ ---
HPI History of Present Illness Chief Complaint: Head Injury Informant: patient and family Onset/Context/Timing Onset: Today Mechanism/Context: Blunt Injury Current Severity: Moderate Maximum Severity: Moderate Associated Symptoms Associated Symptoms: Negative for Parasthesias, Weakness, Loss of function, Inability to ambulate, Loss of consciousness or Amnesia Narrative Narrative: 69-year-old female history of anemia and A-fib takes daily baby aspirin. She raises horses. Horse came running through the barn knocked her over she went backwards struck her head and is complaining of head and neck pain. Denies being knocked out. Denies nausea vomiting. Unsure of her last tetanus. Injury occurred about an hour and a half ago. She said when she was knocked down by the horse her head hit a cement floor. She has had significant bleeding from her posterior scalp. Denies any numbness or weakness to her upper or lower extremities. Denies any other complaints. Tetanus Immunization: Unknown Prior similar symptoms: No Recent Illness/Hospitalization: [facility] Medical History Lyme disease Intermittent palpitations Arthritis Paroxysmal supraventricular tachycardia Anxiety Premature ventricular contractions Anemia Elevated LFTs Lung nodule Liver nodule Hyperlipidemia Frequent PVCs Asthma Obesity GERD (gastroesophageal reflux disease) Home Medications ?Medication ?Instructions ?Recorded ?Last Taken ?Type famotidine 20 mg tablet 20 mg PO BID 12/16/20 10/06/24 History biotin 10,000 mcg chewable tablet 10,000 mcg PO DAILY 06/28/23 10/05/24 History (Hair, Skin and Nails (biotin)) aspirin 81 mg chewable tablet 81 mg PO QDAY 05/27/24 10/06/24 History vitamins A,C,H-xjud-jjsbiv 4,296 1 cap PO QDAY 05/27/24 10/06/24 History mcg-226 mg-90 mg capsule (PreserVision AREDS) indapamide 1.25 mg tablet 1.25 mg PO DAILY 10/06/24 10/06/24 History ondansetron 4 mg disintegrating 4 mg PO Q6H PRN nausea and 10/06/24 Unknown Rx tablet vomiting #10 tabs Allergy/AdvReac Type Severity Reaction Status Date / Time guaifenesin (From Robitussin) AdvReac Rash Verified 10/06/24 11:53 pseudoephedrine HCl (From AdvReac Swelling Verified 10/06/24 11:53 Actifed) triprolidine HCl (From AdvReac Swelling Verified 10/06/24 11:53 Actifed) Family History Mother Heart disease afib Grandmother Heart disease afib Brother Afib Autoimmune disorder Father Afib Surgical History Status post blepharoplasty History of Social History Smoking Status: Never smoker alcohol intake: never substance use type: does not use caffeine: Yes Type: tea ROS ROS ED ROS Narrative Denies recent illness. Constitutional Constitutional ED: Denies chills or fever(s) Eyes Eyes: Denies blurry vision ENT ENT ED: Denies ear pain Cardiovascular Cardiovascular: Denies chest pain Respiratory/Chest Respiratory/Chest: Denies cough or dyspnea Gastrointestinal Gastrointestinal: Denies abdominal pain Genitourinary Genitourinary ED: Denies dysuria Musculoskeletal Musculoskeletal: Denies arthralgias or back pain Integumentary Denies abscess Neurologic Neurologic: Reports headache(s); Denies paresthesias or weakness Psychiatric Psychiatric: Denies anxiety or depression Endocrine Endocrinology: Denies cold intolerance Hematologic/Lymphatic Hematologic/Lymphatic: Denies easy bleeding, easy bruising or lymphadenopathy Allergic/Immunologic Allergic/Immunologic ED: Denies mouth swelling, tongue swelling or urticaria EXAM Physical Exam Narrative Exam Narrative: 69-year-old female sitting upright in bed. Family at bedside. Vital signs are stable afebrile. H EENT exam pupils round react light. Motions are intact. Is no trauma to her face. Face is nontender nonswollen. Posterior scalp there is a laceration there is a bunch of dried blood with [place] all cleaned off of 4 to thoroughly and appropriately evaluate the wound. C-spine nontender. She has paracervical soft tissue tenderness. Trachea midline. Lungs clear to auscultation bilaterally. Heart regular rhythm rate about 75 no murmur. Chest wall ribs nontender. Abdomen soft nontender. No peritoneal signs. No signs of trauma. Pelvic girdle intact. Moving all 4 extremities. 5 of 5 label cutter strength. Dorsi plantarflexion intact. Nontender no deformity. Normal range of motion. Back nontender. No bruising. Neurologically she is awake alert. Answer questions following commands. GCS 15. Const Vital Signs: 10/06/24 11:52 10/06/24 11:56 10/06/24 12:12 Temperature 98 F Temperature Source Temporal Pulse Rate 76 82 Respiratory Rate 14 18 Respiratory Effort Normal Non-Labored Blood Pressure 147/84 H Blood Pressure Mean 105 Pulse Ox 96 98 Oxygen Delivery Method Room Air Room Air 10/06/24 14:00 Temperature Temperature Source Pulse Rate 72 Respiratory Rate 16 Respiratory Effort Blood Pressure Blood Pressure Mean Pulse Ox 99 Oxygen Delivery Method Positive well nourished and well developed; Negative for cachectic, contractures or unkempt General Appearance ED: well developed and NAD; Negative for unkempt, cachectic or contractures Nutritional Appearance: Negative for cachectic HEENT HEENT Narrative: Posterior scalp hematoma. Dried blood throughout her back of her hair. trauma and tenderness Eyes PERRL and EOMs intact bilaterally Neck full ROM Neck Narrative: Diffuse paracervical primarily soft tissue tenderness. General: tenderness Chest Wall inspection of chest normal and palpation of chest normal Resp normal respiratory effort and clear to auscultation bilaterally Cardio regular rhythm, S1 normal heart sound, S2 normal heart sound and no murmurs Rate: regular rate GI normal to inspection, nondistended, normoactive bowel sounds, non-tender, non-distended and no masses Inspection: Negative for abdominal distention Palpation: soft; Negative for tender or guarding Back/Spine normal to inspection and no thoracic nor lumbar tenderness General Back: Negative for CVA tenderness Thoracic Spine / Upper Back: Negative for thoracic spinal tenderness Extremity normal to inspection and full ROM General Extremety ED: Negative for deformity, edema or tenderness General Extremity: Negative for deformity or edema Neuro oriented x3, CN's II-XII intact bilaterally, moves all extremities and no focal motor deficits Mauricio Coma Scale: document GCS findings Spontaneous Obeys Commands Oriented 15 Sensorium / Orientation: alert, oriented to person, oriented to place and oriented to time; Negative for orientation impaired, lethargic or stuporous Motor Exam: strength 5/5 throughout Psych mental status grossly normal and thought process normal Appearance: Negative for unkempt Attitude: No agitated Mood & Affect: Negative for depressed, anxious or tearful Skin no rashes or lesions noted, skin turgor normal and no jaundice Skin Narrative: Posterior scalp laceration with hematoma and a lot of dried blood. Rashes: No rashes noted Trauma: Negative for abrasion PROC Procedures Lacerations Scalp laceration repair:: Length: 3 in Depth: Sub Q Shape: Irregular and circular Prep: Sandy Laceration repair: Irrigated, Lidocaine with epi, Local, Skin sutures and Wound explored Number of Sutures/[place]: 6 Suture Information: Ethilon, Simple and - (3-0 Ethilon) Comment: Patient had a circular wound top of her posterior scalp border hematoma. Significant bleeding. The nurses want to clean it so I can examine it better and explore the wound and she started having pulsatile bleeding from the skin arterial. Area was locally injected with lidocaine with epinephrine. Bleeding was controlled. I closed using 6 simple interrupted 3-0 Ethilon sutures. Proper hemostasis wound closure obtained. Proximately a 2-1/2 to 3 inch circular irregular laceration with moderate-sized hematoma. No foreign body was seen. Patient tolerated procedure well. Proper hemostasis and wound closure is obtained. She and her were instructed on wound care and suture removal. MDM MDM MDM Narrative Medical decision making narrative: 69-year-old was knocked down by a horse in her barn when she was knocked backwards her head hit the cement causing a laceration hematoma. CAT scan of her head and neck will be obtained. She is awake and alert. Tylenol for pain. Suture set up. Lidocaine with epinephrine. With the clean up the back of her scalp and all the blood to be appropriately evaluate the wound. It will need to be closed either with krystal or stitches. Tetanus will be updated. She has no other injuries or complaints at this time. Repeat exam at 2:45 PM patient doing well. Vital signs are stable. She is resting comfortably. We discussed that she has a concussion. We went over the head injury. I do not see any active bleeding at this time. Nurses going to ambulate and make sure she is doing well. She will be discharged home with head injury instructions. Sutures out in 14 days. Zofran as needed for nausea for the concussion. They were instructed on when to return if she has intractable vomiting not acting right or starts bleeding again. History & Record Review Discussion w/independent historian: Patient and Family Radiography Diagnostic Testing: Clinical Impression(s) from Imaging Studies Brain CT 10/06/24 13:47 IMPRESSION: There is a skin defect with subcutaneous hematoma at the posterior vertex measuring 4.0 x 1.6 cm, with no underlying fracture or visible radiopaque foreign body. No acute intracranial pathology. [facility] Cerv[facility] Spine CT 10/06/24 13:47 IMPRESSION: DEGENERATIVE CHANGES OF THE CERVICAL SPINE. No acute abnormality is seen. Reading Location: [facility]1 CT of the brain showed no acute intracranial bleed nor skull fracture. There was a posterior scalp laceration with hematoma. CT C-spine showed chronic changes but no acute fracture. Discharge Plan Triage Chief Complaint: Head Injury Other Complaint: Headache ED Provider: Hayden Cruz Dx/Rx/DC Orders Clinical Impression: Head injury, Concussion, Laceration of scalp Instructions: ED Concussion, ED Laceration Scalp Stitches or Krystal Prescriptions: New ondansetron 4 mg tablet,disintegrating 4 mg PO Q6H PRN (Reason: nausea and vomiting) Qty: 10 0RF No Action famotidine 20 mg tablet 20 mg PO BID Patient Comments: TAKE 1 TABLET BY MOUTH TWICE A DAY Hair, Skin and Nails (biotin) 10,000 mcg tablet,chewable 10,000 mcg PO DAILY aspirin 81 mg tablet,chewable 81 mg PO QDAY PreserVision AREDS 4,296 mcg-226 mg-90 mg capsule 1 cap PO QDAY indapamide 1.25 mg tablet 1.25 mg PO DAILY Primary Care Provider: Alyson Stanley Referrals: Alyson Stanley, [Primary Care Provider] - 10-14 Days suture removal Activity Restrictions/Additional Instructions: Ice to your scalp to decrease pain and swelling. Also to help stop the bleeding. Keep our dressing on for the next 24 hours. You can take it off tomorrow and shower. Be careful showering and drying it you can rip the stitches but they are very strong. Tylenol for pain. You have a head injury/concussion. You may get some headaches. You may have some nausea. You might feel sleepy. You can go to sleep at night. Return if severe headache, intractable vomiting or feeling worse. If the rebleeds return. Stitches should not come out for 2 weeks. I would leave them in and have them taken out 2 weeks from today. We want this to heal as best as possible. There was a lot of bleeding underneath it. Stitches can be taken out by us or your primary care physician's office Dr. Fast. Baca as needed for nausea. You can swallow it, chew it up or let it dissolve under your tongue. You only need to take it if you are having nausea. Print Language: Tongan Disposition Disposition: Home, Self Care
[2024-10-06] MEDS: Diphth,Pertuss(Acell),Tet Vac 0.5 ML Vial IM (12:22)
[2024-10-06] MEDS: Acetaminophen 500 MG Tablet 1000 MG PO (12:23)
[2024-10-06] MEDS: Lidocaine 1% /Epi 1:100 (20ml) 20 ML Vial 10 ML INFILT (12:24)
--- NOTE | 2024-10-06 13:47 | CT_ITS ---
PROCEDURE: SPINE CERVICAL WITHOUT CONTRAS 10/06/2024 REASON FOR EXAM: HEAD TRAUMA TECHNIQUE: Cervical spine CT without contrast. Coronal and Sagittal reconstruction series were provided. One or more dose reduction techniques were used (e.g., Automated exposure control, adjustment of the mA and/or kV according to patient size, use of iterative reconstruction technique RADIATION DOSE SUMMARY: CTDlvol: 23.93 mGy DLP: 431.76 mGycm COMPARISON: None FINDINGS: Alignment: Straightening of the normal cervical lordosis. Vertebrae: Spondylosis at the C5-C6 level. Soft Tissues: No prevertebral soft tissue swelling. Other: None C1-2: Degenerative changes at the atlantoaxial joint. C2-3: Facet joint osteoarthritis and hypertrophy. No significant stenosis is seen. C3-4: Facet joint osteoarthritis and hypertrophy worse on the right side. Uncovertebral arthrosis. Mild right neural foraminal stenosis. Minimal anterior listhesis of C3 on C4 most likely secondary to the facet joint osteoarthritis. C4-5: Mild degree of disc space narrowing. Facet joint osteoarthritis. Uncovertebral arthrosis. Mild bilateral neural foraminal stenosis. C5-6: Marked degree of disc space narrowing and spondylosis. Subchondral sclerosis. Hypertrophy of the facet joints more prominent on the left side. Mild left neural foraminal stenosis. C6-7: Unremarkable C7-T1: Unremarkable CT/Spine Cervical without Contras IMPRESSION: DEGENERATIVE CHANGES OF THE CERVICAL SPINE. No acute abnormality is seen. Reading Location: [place] [id number]
--- NOTE | 2024-10-06 13:47 | CT_ITS ---
EXAM: NONCONTRAST CT SCAN OF THE HEAD CLINICAL HISTORY: Scalp laceration COMPARISON: None TECHNIQUE: Serial axial series through the head were obtained without contrast. 2-D coronal and sagittal reformats were then obtained. FINDINGS: Brain: There is no acute large territorial infarct, intracranial hemorrhage, midline shift or mass effect. There are atherosclerotic vascular calcifications involving the bilateral carotid siphons. The sella and pineal gland regions appear unremarkable. Evaluation of the brainstem is limited due to beam hardening artifact. There is no evidence of cerebellar tonsillar herniation. Ventricles: There is no acute hydrocephalus. Basilar cisterns are patent. Paranasal sinuses: Well-aerated Mastoid air cells: Well-aerated. Calvarium: The bony calvarium is intact. Orbits: The bilateral globes are symmetric, without retrobulbar compressive mass lesion or hemorrhage. Miscellaneous: There is a skin defect with subcutaneous hematoma at the posterior vertex measuring 4.0 x 1.6 cm, with no underlying fracture or visible radiopaque foreign body. CT/Brain/Head without Contrast IMPRESSION: There is a skin defect with subcutaneous hematoma at the posterior vertex measu ring 4.0 x 1.6 cm, with no underlying fracture or visible radiopaque foreign body. No acute intracranial pathology. Reading Location: [facility]
[2024-10-06 14:00] VITALS: PULSE 72; RESP 16; O2SAT 99
[2024-10-06 15:00] VITALS: BP 151/81; PULSE 82; RESP 14; O2SAT 98
[2024-10-06 15:18] VITALS: BP 141/82; PULSE 69; RESP 14; TEMP 36.1; O2SAT 98
== END 2024-10-06 15:19 | disposition home or self-care (01) ==
PROVIDERS: Emergency Provider Emergency Medicine; PCP Internal Medicine; Visit Provider Emergency Medicine
DX: S06.0X0A Concussion without loss of consciousness, initial encounter (principal); S01.01XA Laceration without foreign body of scalp, initial encounter; M54.2 Cervicalgia; Z23 Encounter for immunization; W55.12XA Struck by horse, initial encounter; W01.10XA Fall on same level from slipping, tripping and stumbling with subsequent striking against unspecified object, initial encounter; Y92.71 Barn as the place of occurrence of the external cause; E78.5 Hyperlipidemia, unspecified; Z79.82 Long term (current) use of aspirin; Z79.899 Other long term (current) drug therapy
CPT/HCPCS: 12004; 70450; 72125; 90715; 99284

== ENCOUNTER → 2024-11-06 | Outpatient (CLI) | payer MEDICARE, OTHER, SELFPAY ==
--- NOTE | 2024-11-06 13:48 | CDU_ITS ---
Reason For Study Reason For Study: Stenosis Rt. Velocities/BP Lt. Velocities/BP Prox CCA 48.5/20.1 cm/sec. Prox CCA 50.9/15.1 cm/sec. Mid CCA 67.4/29.6 cm/sec. Mid CCA 57.0/22.1 cm/sec. Dist CCA 60.7/21.1 cm/sec. Dist CCA 62.2/31.7 cm/sec. Prox ICA 57.8/21.2 cm/sec. Prox ICA 66.6/29.1 cm/sec. Mid ICA 44.3/21.7 cm/sec. Mid ICA 33.6/19.8 cm/sec. Dist ICA 34.4/20.0 cm/sec. Dist ICA 45.1/24.1 cm/sec. Rt. ICA/CCA = 0.9. Lt. ICA/CCA = 1.2. Prox ECA 59.8/16.3 cm/sec. Prox ECA 57.1/21.6 cm/sec. Rt. Vert. 42.1/16.8 cm/sec. Lt. Vert. 25.1/10.9 cm/sec. Right Extracranial There is intimal thickening but no significant atherosclerotic plaque noted in the right common carotid artery. There is heterogeneous, irregular atherosclerotic plaque noted in the right internal carotid artery. There is intimal thickening but no significant atherosclerotic plaque noted in the right external carotid artery. Antegrade flow is noted in the right vertebral artery. Left Extracranial There is intimal thickening but no significant atherosclerotic plaque noted in the left common carotid artery. There is intimal thickening but no significant atherosclerotic plaque noted in the left internal carotid artery. There is intimal thickening but no significant atherosclerotic plaque noted in the left external carotid artery. The left external carotid artery is not well visualized. Antegrade flow is noted in the left vertebral artery. Procedure Carotid Duplex [id number]. This is a Carotid Duplex examination using B-mode, color flow and specral Doppler. Exam performed in department. VL/Carotid Duplex Ultrasound Interpretation Summary Mild (<50%) stenosis right extracranial internal carotid. Normal left extracranial internal carotid. Patent and antegrade vertebrals bilaterally. Ordering Physician: Alyson Stanley Referring Physician: Alyson Stanley Performed By: Poornima Edwards RVT
== END | disposition home or self-care (01) ==
LOC: CVS 13:47
PROVIDERS: PCP Internal Medicine; Referring Provider Internal Medicine; Visit Provider Internal Medicine
DX: I65.23 Occlusion and stenosis of bilateral carotid arteries (principal)
CPT/HCPCS: 93880

== ENCOUNTER 2024-11-16 14:00 | Outpatient (RCR) | payer MEDICARE, OTHER, SELFPAY ==
[2024-11-02 14:26] VITALS: BP 132/92; PULSE 65; RESP 16; TEMP 36.3; BMI 30.2
--- NOTE | 2024-11-02 15:04 | PCM.WC.HP ---
History of Present Illness Date of Service: 11/02/24 History of Wound: The patient is a 69-year-old female presenting for follow-up on an occipital scalp wound. The wound originated from an incident four weeks prior when the patient fell onto concrete after being knocked over by a horse. Initially, the wound was characterized by a large baseball-sized swelling on the scalp’s vertex. Treatment was initiated in the emergency department, followed by consultation with Dr. Vera. The dimensions were noted to be 1.5 x 2.3 cm with a depth of 0.4 cm, without exposed bone or infection, and with good granulation. Through diligent home care, the patient transitioned from using a bleach solution to saline dressings. She denies significant pain, though tenderness is reported. The patient has no past smoking history, diabetes, or other pertinent comorbidities affecting wound healing. During this follow-up, the wound is now smaller at 1.5 x 1.5 cm, with granulation tissue filling the base, high-quality healing observed, minimal exudate, and no exposed bone. She receives assistance from her in applying saline-soaked dressings. Current Encounter, 02 November 2024: Doing well overall. Compliant with dressing changes. Attestation: Documentation on this patient encounter was supported using ambient scribe technology/ voice AI technology. The patient consented to recording for the purpose of documenting the encounter. Provider reviewed content of the generated note prior to signature. [facility] Medical History Lyme disease Intermittent palpitations Arthritis Paroxysmal supraventricular tachycardia Anxiety Premature ventricular contractions Anemia Elevated LFTs Lung nodule Liver nodule Hyperlipidemia Frequent PVCs Asthma Obesity GERD (gastroesophageal reflux disease) Home Medications Medication Instructions Recorded Last Taken Type famotidine 20 mg tablet 20 mg PO BID 12/16/20 10/06/24 History biotin 10,000 mcg chewable tablet 10,000 mcg PO DAILY 06/28/23 10/05/24 History (Hair, Skin and Nails (biotin)) aspirin 81 mg chewable tablet 81 mg PO QDAY 05/27/24 10/06/24 History vitamins A,C,S-kolr-daldxn 4,296 1 cap PO QDAY 05/27/24 10/06/24 History mcg-226 mg-90 mg capsule (PreserVision AREDS) indapamide 1.25 mg tablet 1.25 mg PO DAILY 10/06/24 10/06/24 History ondansetron 4 mg disintegrating 4 mg PO Q6H PRN nausea and 10/06/24 Unknown Rx tablet vomiting #10 tabs cholecalciferol (vitamin D3) 25 25 mcg PO QDAY 10/21/24 Unknown History mcg (1,000 unit) capsule d-mannose 500 mg capsule mg PO 10/21/24 Unknown History Allergy/AdvReac Type Severity Reaction Status Date / Time guaifenesin (From Robitussin) AdvReac Rash Verified 11/02/24 14:22 pseudoephedrine HCl (From AdvReac Swelling Verified 11/02/24 14:22 Actifed) triprolidine HCl (From AdvReac Swelling Verified 11/02/24 14:22 Actifed) Family History Mother Heart disease afib Grandmother Heart disease afib Brother Afib Autoimmune disorder Father Afib Surgical History Status post blepharoplasty History of Social History Smoking Status: Never smoker alcohol intake: never substance use type: does not use caffeine: Yes Type: tea Vital Signs Vital Signs Vital Signs: 11/02/24 14:26 Temperature 97.4 F L Temperature Source Temporal Pulse Rate 65 Respiratory Rate 16 Blood Pressure 132/92 H Blood Pressure Mean 105 Blood Pressure Source Monitor Blood Pressure Position Sitting Blood Pressure Location Right Arm Oxygen Delivery Method Room Air Weight Weight: 165 lb Body Mass Index (BMI) 30.2 Physical Exam Narrative - Scalp: Occipital/vertex wound measuring 1.5 x 1.5 cm, depth 0.5 cm, no exposed bone, no signs of infection, granulating well. There is galea (fascia) a the base. Debridement Note Debridement Note Wound debrided: Occipital scalp wound to the level of the galea aponeurosis (fascia) 1.5 x Laterality: Not Applicable (Central posterior scalp) Wound Grade/Stage: Stage III Type of Debridement: Excisional debridement Anesthesia Used: 4% Lidocaine Solution Depth: to muscle (To the fascia of the galea aponeurosis) Percentage of wound debrided: 100 Instrument Used: 7mm curette Tissue Removed: Fibrinous exudate and necrotic debris at the level of the fascia of galea Severity: Necrosis of Muscle (Given the aponeurosis) Amount of bleeding with debridement: Moderate Bleeding Controlled with: Compression and gauze Patient tolerated procedure: Patient tolerated procedure well Post-Debridement Measurements and Additional Note: Post-Debridement Measurements/Treatment WC - Nurse 1 - General Ulcer Assessment Start: 11/02/24 14:20 Freq: Status: Active Protocol: CHELSY Activity Type Activity Date Activity User E-sign Co-sign Detail Recorded Client Recorded Date Recorded By Document 11/02/24 14:26 KW [id number] 11/02/24 14:40 KW 11/02/24 14:26 WC - Today's Visit Information Type of service Initial Visit Arrival Mode Ambulatory Patient Identification Verified (Name & Yes ) Height and Weight Height 5 ft 2 in Weight 165 lb Weight in Pounds 165.0 lbs Weight Measurement Method Estimated by Patient Body Mass Index (BMI) 30.2 BMI Classification Obese Vital Signs Temperature (97.8 F-99.1 F) 97.4 F L Temperature Source Temporal Pulse Rate (60-100) 65 Pulse Location Monitor Respiratory Rate (12-18) 16 Respiratory rate source Observation Oxygen Delivery Method Room Air Blood Pressure (90/60-120/80) 132/92 H Blood Pressure Mean 105 Source Monitor Position Sitting Blood Pressure Location Right Arm History Since Last Visit- (Skip if this is Patient's initial visit) Left Footwear Regular Shoe Right Footwear Regular Shoe Pain Scale: 0-10 Numeric Is Patient Pain Free? No Communication Assessment Preferred language Belgian Intelligence Director Required No Able to Read Yes Able to Write Yes Communication Tools None Right Hearing Abillity Normal Left Hearing Abillity Normal Visual Assistive Devices None Teaching Assessment Preferences Verbal Barriers to Learning None Readiness To Learn Excellent Willingness to Engage in Self Management High Activies Readiness to Engage in Self Management High Activities Anxiety Level Calm Cooperation Cooperative Perception Coherent Interest in Health Problem Asks Questions Education Importance Acknowledges Need Does Patient Smoke tobacco or other No substances Smoking Status Never smoker Is Patient Diabetic No Functional Assessment Recent Decline in Ability to Perform Denies Any Declines Culture/Sabianist/Turn Laster Cultural/Sabianist Needs that may affect No Treatment Plan Would you allow our hospital police communications operator to No meet you for the purpose of spiritual/ emotional support? Turn Laster to contact place of rastafari No WC - Nurse 1 - General Ulcer Measurement Start: 11/02/24 14:20 Freq: Status: Active Protocol: Activity Type Activity Date Activity User E-sign Co-sign Detail Recorded Client Recorded Date Recorded By Document 11/02/24 14:26 KW [id number] 11/02/24 14:40 KW 11/02/24 14:26 Wound Center Nurse 1 #1 post head -Current Size (cm) - Length 1.3 -Current Size (cm) - Width 0.5 -Current Size (cm) - Depth 0.2 -Total Square Cm 0.65 -Date of Last Picture (Recall this 11/02/24 field) -Exudate Amt Medium -Exudate Type Serosanguineous -Wound Margin Thickened -Granulation Amt Large (67-100%) -Granulation Quality Red -Texture (Loulou-wound Skin Appearance) Assessed -Moisture (Loulou-wound Skin Appearance) Assessed -Color (Loulou-wound Skin Appearance) Assessed -Temperature (Loulou-wound Skin No Abnormality Appearance) (Pt Warm) -Tenderness on Palpation (Loulou-wound No Skin Appearance) -Ulcer Cleansing Soap and Water -Foul Odor after Cleansing No -Anesthetic Used 4% Lidocaine Solution,5% Lidocaine Gel WC - Nurse 2 - General Ulcer CM Notes Start: 11/02/24 14:20 Freq: Status: Active Protocol: Activity Type Activity Date Activity User E-sign Co-sign Detail Recorded Client Recorded Date Recorded By Document 11/02/24 14:54 DS [id number] 11/02/24 14:56 DS 11/02/24 14:54 Wound Center Nurse 2 -Time 14:54 -Correct Patient Yes -Correct Side, Site, Position Yes -Correct Procedure Yes -Procedure Performed Yes -Type of Procedure Debridement -Clinical Debridement Muscle / Fascia -Tissue Removed Muscle -Post Debridement (cm) - Length 1.5 -Post Debridement (cm) - Width 1.5 -Total Square (Post) (cm) 2.25 -Area of Debridement (cm) - Length 1.5 -Area of Debridement (cm) - Width 1.5 -Total Square (Area) (cm) 2.25 -Tunneling No -Undermining/Tunneling No -Circular Undermining No -Wound/Ulcer Outcome Not Healed -Ulcer Cleansing Rinsed/ Irrigated with Saline -Foul Odor after Cleansing No -Bioengineered Tissue No -Bleeding Controlled with Pressure -Treatment Response Procedure Tolerated Well -Debridement - Muscle / Fascia, 1st Yes 20sq cm Pain Scale: 0-10 Numeric Is Patient Pain Free? Yes Charges/Coding Procedures Integumentary [id number]: [id number] Melisa musc/fascia 20 sq cm/< Assessment/Plan Assessment/Plan (1) Open scalp wound: CODE(S): S01.00XA - Unspecified open wound of scalp, initial encounter PLAN: Continued wet to moist dressings twice daily with saline soaked gauze and burn net. Follow-up in 2 weeks at the wound care center. Continue pressure offloading as able. Continue to keep covered while working to keep the wound clean.
--- NOTE | 2024-11-03 08:55 | WC ---
PHOTO 11/02/24 POST HEAD
[2024-11-16 13:43] VITALS: BP 115/83; PULSE 178; RESP 18; TEMP 36.6; BMI 30.2
--- NOTE | 2024-11-17 09:44 | WC ---
PHOTO 11/16/24 POST HEAD LACERATION
--- NOTE | 2024-11-17 11:51 | PCM.WC.PN ---
History of Present Illness Date of Service: 11/16/24 History of Wound: The patient is a 69-year-old female presenting for follow-up on an occipital scalp wound. The wound originated from an incident four weeks prior when the patient fell onto concrete after being knocked over by a horse. Initially, the wound was characterized by a large baseball-sized swelling on the scalp’s vertex. Treatment was initiated in the emergency department, followed by consultation with Dr. Vera. The dimensions were noted to be 1.5 x 2.3 cm with a depth of 0.4 cm, without exposed bone or infection, and with good granulation. Through diligent home care, the patient transitioned from using a bleach solution to saline dressings. She denies significant pain, though tenderness is reported. The patient has no past smoking history, diabetes, or other pertinent comorbidities affecting wound healing. During this follow-up, the wound is now smaller at 1.5 x 1.5 cm, with granulation tissue filling the base, high-quality healing observed, minimal exudate, and no exposed bone. She receives assistance from her in applying saline-soaked dressings. 02 November 2024: Doing well overall. Compliant with dressing changes. Attestation: Documentation on this patient encounter was supported using ambient scribe technology/ voice AI technology. The patient consented to recording for the purpose of documenting the encounter. Provider reviewed content of the generated note prior to signature. Subjective Subjective CURRENT ENCOUNTER, 16 November 2024: The patient is a 69-year-old female presenting with a scalp wound. The wound was healing well with minimal crusting observed, and no further intervention was deemed necessary. The patient also has a history of atrial fibrillation, which was noted to be in a rapid ventricular response during the visit. She reported that her heart rate often increases in medical settings, and she is not currently on any rate control medications. The patient mentioned a previous carotid duplex ultrasound and EKG, with fluctuating heart rates observed. ROS - Cardiovascular: Reports palpitations in medical settings. Denies lightheadedness or fatigue. Attestation: Documentation on this patient encounter was supported using ambient scribe technology/ voice AI technology. The patient consented to recording for the purpose of documenting the encounter. Provider reviewed content of the generated note prior to signature. Objective Data Objective Data Vital Signs: Vital Signs Temp Pulse Resp BP O2 Del Method 97.9 F 178 H 18 115/83 H Room Air 11/16/24 13:43 11/16/24 13:43 11/16/24 13:43 11/16/24 13:43 11/16/24 13:43 Oxygen Delivery Method Room Air Weight: 165 lb Body Mass Index (BMI) 30.2 Charges/Coding Visit Charges Office Visits / Consults: 63152 OV L3 Est 20min Physical Exam Narrative - Scalp: Healed with minimal crusting - Cardiovascular: Irregular heart rate noted, described as racing and threading Debridement Note Debridement Note No debridement was completed: No debridement was completed today Post-Debridement Measurements and Additional Note: Post-Debridement Measurements/Treatment WC - Nurse 1 - General Ulcer Assessment Start: 11/02/24 14:20 Freq: Status: Active Protocol: CHELSY Activity Type Activity Date Activity User E-sign Co-sign Detail Recorded Client Recorded Date Recorded By Document 11/02/24 14:26 KW [id number] 11/02/24 14:40 KW Document 11/16/24 13:43 KW [id number] 11/16/24 13:49 KW 11/02/24 11/16/24 14:26 13:43 WC - Today's Visit Information Type of service Initial Visit Follow-up Visit (Physician/SENIOR SAS DEVELOPER ) Arrival Mode Ambulatory Ambulatory Patient Identification Verified (Name & Yes Yes ) Height and Weight Height 5 ft 2 in Weight 165 lb Weight in Pounds 165.0 lbs Weight Measurement Method Estimated by Patient Body Mass Index (BMI) 30.2 30.2 BMI Classification Obese Obese Vital Signs Temperature (97.8 F-99.1 F) 97.4 F L 97.9 F Temperature Source Temporal Temporal Pulse Rate (60-100) 65 178 H Pulse Location Monitor Monitor Respiratory Rate (12-18) 16 18 Respiratory rate source Observation Observation Oxygen Delivery Method Room Air Room Air Blood Pressure (90/60-120/80) 132/92 H 115/83 H Blood Pressure Mean (mm Hg) 105 93 Source Monitor Monitor Position Sitting Standing Blood Pressure Location Right Arm Right Arm History Since Last Visit- (Skip if this is Patient's initial visit) Have you changed medications since your No last visit? Any new allergies or adverse reactions No Had a fall/change in ADL's that may No increase risk of falls Signs or symptoms of abuse and/or No neglect since last visit Have you been in the hospital since your No last visit? Has dressing in place as prescribed Yes Has compression in place as prescribed N/A Has offloadiing in place as prescribed N/A Experienced any changes in pain level or No management Left Footwear Regular Shoe Regular Shoe Right Footwear Regular Shoe Regular Shoe Pain Scale: 0-10 Numeric Is Patient Pain Free? No Yes Communication Assessment Preferred language Monegasque Entertainment Musician Required No Able to Read Yes Able to Write Yes Communication Tools None Right Hearing Abillity Normal Left Hearing Abillity Normal Visual Assistive Devices None Teaching Assessment Preferences Verbal Barriers to Learning None Readiness To Learn Excellent Willingness to Engage in Self Management High Activies Readiness to Engage in Self Management High Activities Anxiety Level Calm Cooperation Cooperative Perception Coherent Interest in Health Problem Asks Questions Education Importance Acknowledges Need Does Patient Smoke tobacco or other No substances Smoking Status Never smoker Is Patient Diabetic No Functional Assessment Recent Decline in Ability to Perform Denies Any Declines Culture/Latter Day/Artist'S Representative Cultural/Latter Day Needs that may affect No Treatment Plan Would you allow our hospital client service supervisor to No meet you for the purpose of spiritual/ emotional support? Artist'S Representative to contact place of taoism No WC - Nurse 1 - General Ulcer Measurement Start: 11/02/24 14:20 Freq: Status: Active Protocol: Activity Type Activity Date Activity User E-sign Co-sign Detail Recorded Client Recorded Date Recorded By Document 11/02/24 14:26 [id number] 11/02/24 14:40 Document 11/16/24 13:43 [id number] 11/16/24 13:49 KW 11/02/24 11/16/24 14:26 13:43 Wound Center Nurse 1 #1 post head -Current Size (cm) - Length 1.3 0.1 -Current Size (cm) - Width 0.5 0.1 -Current Size (cm) - Depth 0.2 0 -Total Square Cm 0.65 0.01 -Date of Last Picture (Recall this 11/02/24 11/16/24 field) -Exudate Amt Medium None Present -Exudate Type Serosanguineous -Wound Margin Thickened Indistinct, Non -Visible -Granulation Amt Large (67-100%) -Granulation Quality Red -Texture (Loulou-wound Skin Appearance) Assessed Assessed, Scarring -Moisture (Loulou-wound Skin Appearance) Assessed Assessed -Color (Loulou-wound Skin Appearance) Assessed Assessed -Temperature (Loulou-wound Skin No Abnormality No Abnormality Appearance) (Pt Warm) (Pt Warm) -Tenderness on Palpation (Loulou-wound No No Skin Appearance) -Ulcer Cleansing Soap and Water -Foul Odor after Cleansing No No -Anesthetic Used 4% Lidocaine Solution,5% Lidocaine Gel WC - Nurse 2 - General Ulcer CM Notes Start: 11/02/24 14:20 Freq: Status: Active Protocol: Activity Type Activity Date Activity User E-sign Co-sign Detail Recorded Client Recorded Date Recorded By Document 11/02/24 14:54 DS [id number] 11/02/24 14:56 DS Document 11/16/24 14:04 DS [id number] 11/16/24 14:04 DS 11/02/24 11/16/24 14:54 14:04 Wound Center Nurse 2 #1 post head -Time 14:54 14:04 -Correct Patient Yes Yes -Correct Side, Site, Position Yes Yes -Correct Procedure Yes -Procedure Performed Yes No -Type of Procedure Debridement -Clinical Debridement Muscle / Fascia -Tissue Removed Muscle -Post Debridement (cm) - Length 1.5 -Post Debridement (cm) - Width 1.5 -Total Square (Post) (cm) 2.25 -Area of Debridement (cm) - Length 1.5 -Area of Debridement (cm) - Width 1.5 -Total Square (Area) (cm) 2.25 -Tunneling No -Undermining/Tunneling No -Circular Undermining No -Wound/Ulcer Outcome Not Healed Healed- Epithelialized -Ulcer Cleansing Rinsed/ Irrigated with Saline -Foul Odor after Cleansing No -Bioengineered Tissue No -Bleeding Controlled with Pressure -Treatment Response Procedure Tolerated Well -Debridement - Muscle / Fascia, 1st Yes 20sq cm Pain Scale: 0-10 Numeric Is Patient Pain Free? Yes Yes WC - Nurse 3 - General Ulcer D/C NN Start: 11/02/24 14:20 Freq: Status: Active Protocol: Activity Type Activity Date Activity User E-sign Co-sign Detail Recorded Client Recorded Date Recorded By Document 11/02/24 15:04 KW [id number] 11/02/24 15:04 KW Document 11/16/24 14:10 DS [id number] 11/16/24 14:11 DS 11/02/24 11/16/24 15:04 14:10 Wound Care Center Nurse 3 #1 post head -Other Dressing saline gauze -Primary Dressing Covered/Secured with Dry Gauze -Wound Comment(s) no dressing pt d/c-healed Pain Scale: 0-10 Numeric Is Patient Pain Free? Yes Yes WC - Visit Discharge Discharge Condition Stable Ambulatory Status Ambulatory Ambulatory Transportation Private Auto Private Auto Medication Reconcilliation completed & No provided to patient/care provider Clinical Summary of Care Provided Yes Assessment/Plan Assessment/Plan (1) Open scalp wound: CODE(S): S01.00XA - Unspecified open wound of scalp, initial encounter (2) Atrial fibrillation with rapid ventricular response: CODE(S): I48.91 - Unspecified atrial fibrillation PLAN: Plan Assessment and Plan The 69-year-old female with a history of atrial fibrillation presented with a scalp wound. The wound has healed requiring no further intervention. Her atrial fibrillation was noted to be in rapid ventricular response, with a heart rate of 178 bpm, which is concerning for potential complications. The patient is not on any rate control medications, and her heart rate fluctuates significantly, particularly in medical settings. 1. Atrial Fibrillation With Rapid Ventricular Response (Rvr) The patient was counseled on immediately going to the emergency department due to the high heart rate of 178 bpm (I told her to go to the emergency department, offered transport. Patient was informed of the risks of not going and she declined to go), which indicates atrial fibrillation with rapid ventricular response. Initiation of a beta lawrence may be beneficial to control the heart rate and prevent potential complications. 2. Scalp Wound Healing The scalp wound is healing well with no further intervention required. The patient is advised to continue normal hair washing and allow the new skin to heal naturally. - Consider visiting the emergency department for heart rate management. - Discuss with your doctor about starting a beta lawrence to control heart rate. - Continue washing your hair normally and allow the scalp to heal naturally.
== END 2024-11-26 14:40 | disposition home or self-care (01) ==
LOC: WC 14:00
PROVIDERS: PCP Internal Medicine; Referring Provider Surgery Plastic and Reconstructive Surgery; Visit Provider Surgery Plastic and Reconstructive Surgery
DX: S01.00XA Unspecified open wound of scalp, initial encounter (principal); I48.91 Unspecified atrial fibrillation; E78.5 Hyperlipidemia, unspecified; J45.909 Unspecified asthma, uncomplicated; W01.198A Fall on same level from slipping, tripping and stumbling with subsequent striking against other object, initial encounter; K21.9 Gastro-esophageal reflux disease without esophagitis; Z79.82 Long term (current) use of aspirin; Z79.01 Long term (current) use of anticoagulants; Z79.899 Other long term (current) drug therapy
CPT/HCPCS: 11043; 99213; G0463

== ENCOUNTER 2024-11-16 14:35 | Emergency (ER) | payer MEDICARE, OTHER, SELFPAY ==
[2024-11-16] VITALS (9 sets, daily range): BP systolic 91–131; BP diastolic 69–112; PULSE 88–175; RESP 16–24; TEMP 36.3–36.7; O2SAT 96–100; BMI 29.5
--- NOTE | 2024-11-16 14:47 | EKG12_ITS ---
Test Reason : HR Blood Pressure : */* mmHG Vent. Rate : 163 BPM Atrial Rate : * BPM P-R Int : * ms QRS Dur : 74 ms QT Int : 296 ms P-R-T Axes : * -58 122 degrees QTcB Int : 487 ms Critical Test Result: High HR afib with rvr Left anterior fascicular block Nonspecific ST and T wave abnormality Abnormal ECG Confirmed by Harshad Taylor ([id number]), web content editor ALEXANDREA WOODS ([id number]) on 11/17/2024 1:19:00 PM Referred By: SONIYA/UG/TL Confirmed By: Harshad Taylor
[2024-11-16 15:00] LABS: Hematocrit 40.8 % (37-47); Hemoglobin 13.5 g/dL (12.0-15.0); Immature Granulocytes Count 0.020 X10^3/uL (0.0-0.0); Mean Corp Hgb Conc 33.1 g/dL (32-36); Mean Corpuscular Volume 91.3 fL (81-99); Mean Platelet Vol. 8.9 fl (6.2-12.0); NRBC Flagged by Analyzer 0 % (0-5); Platelet Count 340 K/mm3 (150-450); RBC Distribution Width CV 13.1 % (11.6-14.6); RBC Distribution Width SD 43.4 fl (35.1-43.9); Red Blood Count 4.47 M/mm3 (4.2-5.4); White Blood Count 8.4 K/mm3 (4.4-11.0)
[2024-11-16 15:45] LABS: Anion Gap 12 (5-15); BUN 20 mg/dL (4-19); BUN/Creat Ratio 31.8 RATIO (10-20); Calcium,Total 9.5 mg/dL (7.6-11.0); Carbon Dioxide 24.9 mmol/L (21.0-32.0); Chloride 102 mmol/L (98-108); Estimated Creatinine Clearance 61.38 ml/min (50-250); Glucose 131 mg/dL (70-99); Potassium 3.5 mmol/L (3.3-5.1)
--- NOTE | 2024-11-16 15:57 | EX.ED.DYSGE1 ---
HPI <Dr. Lázaro Christine MD - Last Filed: 11/16/24 16:14> History of Present Illness Chief Complaint: Palpitations Detail of Chief Complaint: Sent to ER because of rapid heart rate Informant: patient Onset/Context/Timing Onset: - (Onset unknown since she is asymptomatic) Context: - (Unknown) Timing: - (Unknown) Quality: Patient was at Dr. Maldonado's office. Noted she had a fast and rapid heart ra Location: Cardiovascular Current Severity: Patient is asymptomatic Maximum Severity: Not applicable Worsened by: Unknown Relieved by: Nothing Associated Symptoms Associated Symptoms: None Narrative Narrative: Patient is a healthy 69-year-old woman who states she has no history of atrial fibrillation. Does have history of paroxysmal supraventricular tachycardia. She also has history of hyperlipidemia. She was seen by plastics for open scalp wound. She denies headache. Denies double vision blurred vision loss of vision. Denies ringing or ears decreased hearing. No trouble speech or swallowing. She denies chest pain, pressure or tightness. She denies dyspnea or dyspnea on exertion. Time she has dyspnea with exertion is when she is carrying a bale hay. She denies history of PE or DVT. She denies leg pain, swelling or discoloration. She denies black or maroon-colored stool. She is on baby aspirin. Prior similar symptoms: No Recent Illness/Hospitalization: No PFSH <Dr. Lázaro Christine MD - Last Filed: 11/16/24 16:14> [facility] Medical History Lyme disease Intermittent palpitations Arthritis Paroxysmal supraventricular tachycardia Anxiety Premature ventricular contractions Anemia Elevated LFTs Lung nodule Liver nodule Hyperlipidemia Frequent PVCs Asthma Obesity GERD (gastroesophageal reflux disease) Home Medications ?Medication ?Instructions ?Recorded ?Last Taken ?Type famotidine 20 mg tablet 20 mg PO BID 12/16/20 11/16/24 History biotin 10,000 mcg chewable tablet 10,000 mcg PO DAILY 06/28/23 11/15/24 History (Hair, Skin and Nails (biotin)) aspirin 81 mg chewable tablet 81 mg PO QDAY 05/27/24 10/06/24 History vitamins A,C,S-efgn-nyleom 4,296 1 cap PO QDAY 05/27/24 11/15/24 History mcg-226 mg-90 mg capsule (PreserVision AREDS) indapamide 1.25 mg tablet 1.25 mg PO DAILY 10/06/24 11/16/24 History d-mannose 500 mg capsule 500 mg PO DAILY 10/21/24 11/16/24 History apixaban 5 mg tablet (Eliquis) 5 mg PO BID #60 tabs 11/16/24 Unknown Rx diltiazem HCl 180 mg 180 mg PO DAILY #30 caps 11/16/24 Unknown Rx capsule,extended release 24 hr (Cartia XT) Allergy/AdvReac Type Severity Reaction Status Date / Time guaifenesin (From Robitussin) AdvReac Rash Verified 11/16/24 14:36 pseudoephedrine HCl (From AdvReac Swelling Verified 11/16/24 14:36 Actifed) triprolidine HCl (From AdvReac Swelling Verified 11/16/24 14:36 Actifed) Family History Mother Heart disease afib Grandmother Heart disease afib Brother Afib Autoimmune disorder Father Afib Surgical History Status post blepharoplasty History of Social History Smoking Status: Never smoker alcohol intake: never substance use type: does not use caffeine: Yes Type: tea ROS <Dr. Lázaro Christine MD - Last Filed: 11/16/24 16:14> ROS ED Constitutional Constitutional ED: Denies chills, fever(s), subjective, sweats or weight loss Eyes Eyes: Denies blurry vision, change in vision or diplopia Cardiovascular Cardiovascular: Denies chest pain, orthopnea, palpitations, paroxysmal nocturnal dyspnea or racing heartbeat Respiratory/Chest Respiratory/Chest: Denies cough, dyspnea, dyspnea on exertion, orthopnea or paroxysmal nocturnal dyspnea Gastrointestinal Gastrointestinal: Denies abdominal pain, melena, nausea or vomiting Integumentary Denies rash Neurologic Neurologic: Denies headache(s) or weakness Endocrine Endocrinology: Denies cold intolerance or heat intolerance Hematologic/Lymphatic Hematologic/Lymphatic: Reports systems reviewed and no addt'l complaints, except as documented EXAM <Dr. Lázaro Christine MD - Last Filed: 11/16/24 16:14> Physical Exam Const Vital Signs: 11/16/24 14:36 11/16/24 14:36 11/16/24 14:47 Temperature 97.4 F L Temperature Source Temporal Pulse Rate 158 H 175 H 161 H Respiratory Rate 24 H 23 H 16 Blood Pressure 129/112 H 131/93 H Blood Pressure Mean 117 105 Pulse Ox 98 98 98 Oxygen Delivery Method Room Air Room Air Room Air 11/16/24 14:48 11/16/24 14:57 11/16/24 14:58 Temperature Temperature Source Pulse Rate 148 H 100 102 H Respiratory Rate 24 H 19 H 20 H Blood Pressure 91/69 91/69 Blood Pressure Mean 77 76 Pulse Ox 99 97 96 Oxygen Delivery Method Room Air Room Air 11/16/24 15:00 11/16/24 15:53 11/16/24 16:51 Temperature Temperature Source Pulse Rate 96 88 99 Respiratory Rate 19 H 18 18 Blood Pressure 109/76 95/71 113/85 H Blood Pressure Mean 86 79 94 Pulse Ox 96 98 99 Oxygen Delivery Method Room Air Room Air Room Air Positive well nourished and well developed General Appearance ED: well developed and NAD; Negative for pallor HEENT Reports moist mucous membranes HEENT Narrative: Head is atraumatic normocephalic. She does have a scalp wound. Ears normal. Nares patent. Eyes PERRL and EOMs intact bilaterally General Eye ED: Negative for pale conjunctiva or scleral icterus Neck no lymphadenopathy, supple and no JVD Chest Wall inspection of chest normal and palpation of chest normal Resp normal respiratory effort and clear to auscultation bilaterally Cardio no murmurs Rate: tachycardic Rhythm: abnormal rhythm irregularly irregular GI normal to inspection, nondistended, normoactive bowel sounds, non-tender, non-distended and no masses; Negative for hepatosplenomegaly Back/Spine no CVA tenderness Extremity normal to inspection General Extremety ED: Negative for edema or tenderness General Extremity: Negative for edema Neuro oriented x3 and CN's II-XII intact bilaterally Sensorium / Orientation: alert Skin no rashes or lesions noted, No no wounds and skin turgor normal General Skin Exam: elasticity normal; Negative for jaundice or pallor <Dr. Hayden Cruz MD - Last Filed: 11/16/24 17:27> Physical Exam Const Vital Signs: 11/16/24 14:36 11/16/24 14:36 11/16/24 14:47 Temperature 97.4 F L Temperature Source Temporal Pulse Rate 158 H 175 H 161 H Respiratory Rate 24 H 23 H 16 Blood Pressure 129/112 H 131/93 H Blood Pressure Mean 117 105 Pulse Ox 98 98 98 Oxygen Delivery Method Room Air Room Air Room Air 11/16/24 14:48 11/16/24 14:57 11/16/24 14:58 Temperature Temperature Source Pulse Rate 148 H 100 102 H Respiratory Rate 24 H 19 H 20 H Blood Pressure 91/69 91/69 Blood Pressure Mean 77 76 Pulse Ox 99 97 96 Oxygen Delivery Method Room Air Room Air 11/16/24 15:00 11/16/24 15:53 11/16/24 16:51 Temperature Temperature Source Pulse Rate 96 88 99 Respiratory Rate 19 H 18 18 Blood Pressure 109/76 95/71 113/85 H Blood Pressure Mean 86 79 94 Pulse Ox 96 98 99 Oxygen Delivery Method Room Air Room Air Room Air [facility] <Dr. Lázaro Christine MD - Last Filed: 11/16/24 16:14> [facility] Narrative Medical decision making narrative: Monitor reveals narrow complex rhythm consistent with atrial fibrillation. Rate is 165-170. Will obtain twelve-lead to see if there are any obvious evidence of acute ischemia. Will obtain serial troponin levels, TSH, CBC to assess H&H and white count as well as electrolytes and specifically evaluate potassium. She was treated with 20 mg of Cardizem IV push. Lab Data Attestation: I reviewed the patient's lab results. Lab results narrative: CBC is normal. Electrolyte panel is remarkable for elevated glucose of 131 with a normal CO2 anion gap. TSH is normal at 2.01. Troponins are pending. Labs: Laboratory Results - last 24 hr 11/16/24 11/16/24 14:45 16:39 WBC 8.4 RBC 4.47 Hgb 13.5 Hct 40.8 MCV 91.3 MCH 30.2 MCHC 33.1 RDW Std Deviation 43.4 RDW Coeff of Too 13.1 Plt Count 340 MPV 8.9 Immature Gran % (Auto) 0.200 Neut % (Auto) 65.4 Lymph % (Auto) 23.3 [place] % (Auto) 7.8 Eos % (Auto) 2.7 Baso % (Auto) 0.6 Absolute Neuts (auto) 5.5 Absolute Lymphs (auto) 1.97 Nucleated RBC % 0 Sodium 139 Potassium 3.5 Chloride 102 Carbon Dioxide 24.9 Anion Gap 12 BUN 20 H Creatinine 0.62 L Estim Creat Clear Calc 61.38 Est GFR (MDRD) Non-Af 96 BUN/Creatinine Ratio 31.8 H Glucose 131 H Calcium 9.5 Troponin T High Sens 15 H Troponin T Hi Sens 2 Hr 14 TSH 2.010 Rhythm Strip Rhythm Strip: A-fib Rate: 168 Ectopy: None EKG Initial EKG: Attestation: I personally reviewed and interpreted this EKG as follows: Interpretation: Atrial Fibrillation (Rate is 163. Cures duration 74 ms. QT duration 296 ms. Calvert is to the left. She does have a left anterior fascicular block.) Treatment and Re-Evaluation :: Patient's heart rate is approximately 90-100 after Cardizem. Case was discussed with Dr. Henry Taylor. He will see patient. Plan is to discharge with prescription for Cardizem and anticoagulate with Eliquis. She will follow-up with him. Troponins are pending. Will inform Dr. Cobos. Also Dr. Taylor to see in. <Dr. Hayden Cruz MD - Last Filed: 11/16/24 17:27> [facility] MDM Narrative Medical decision making narrative: Monitor reveals narrow complex rhythm consistent with atrial fibrillation. Rate is 165-170. Will obtain twelve-lead to see if there are any obvious evidence of acute ischemia. Will obtain serial troponin levels, TSH, CBC to assess H&H and white count as well as electrolytes and specifically evaluate potassium. She was treated with 20 mg of Cardizem IV push. Repeat exam the patient is doing well at 5:25 PM. CBC was unremarkable as were the electrolytes. Initial troponin fifteen 2-hour troponin 14. TSH 2.0. Dr. Henry Taylor came down emergency room evaluated patient. Patient be discharged home outpatient follow-up with their office later this week. Patient was started on diltiazem at home and Eliquis for blood thinning. Repeat exam patient is doing well at 5:25 PM. Heart rate is around 100. She is comfortable being discharged home. Lab Data Labs: Laboratory Results - last 24 hr 11/16/24 11/16/24 14:45 16:39 WBC 8.4 RBC 4.47 Hgb 13.5 Hct 40.8 MCV 91.3 MCH 30.2 MCHC 33.1 RDW Std Deviation 43.4 RDW Coeff of Too 13.1 Plt Count 340 MPV 8.9 Immature Gran % (Auto) 0.200 Neut % (Auto) 65.4 Lymph % (Auto) 23.3 [place] % (Auto) 7.8 Eos % (Auto) 2.7 Baso % (Auto) 0.6 Absolute Neuts (auto) 5.5 Absolute Lymphs (auto) 1.97 Nucleated RBC % 0 Sodium 139 Potassium 3.5 Chloride 102 Carbon Dioxide 24.9 Anion Gap 12 BUN 20 H Creatinine 0.62 L Estim Creat Clear Calc 61.38 Est GFR (MDRD) Non-Af 96 BUN/Creatinine Ratio 31.8 H Glucose 131 H Calcium 9.5 Troponin T High Sens 15 H Troponin T Hi Sens 2 Hr 14 TSH 2.010 Discharge Plan Triage Chief Complaint: Palpitations ED Provider: Lázaro Christine Dx/Rx/DC Orders Clinical Impression: Atrial fibrillation with rapid ventricular response, Open scalp wound, Nondiabetic hyperglycemia Instructions: ED AFIB Prescriptions: New diltiazem HCl [Cartia XT] 180 mg capsule,extended release 24hr 180 mg PO DAILY Qty: 30 0RF Eliquis 5 mg tablet 5 mg PO BID Qty: 60 0RF No Action famotidine 20 mg tablet 20 mg PO BID Patient Comments: TAKE 1 TABLET BY MOUTH TWICE A DAY Hair, Skin and Nails (biotin) 10,000 mcg tablet,chewable 10,000 mcg PO DAILY aspirin 81 mg tablet,chewable 81 mg PO QDAY PreserVision AREDS 4,296 mcg-226 mg-90 mg capsule 1 cap PO QDAY d-mannose 500 mg capsule 500 mg PO DAILY indapamide 1.25 mg tablet 1.25 mg PO DAILY Primary Care Provider: Alyson Stanley Referrals: Alyson Stanley DO [Primary Care Provider] - Harshad Taylor MD [Med Staff - Active Staff] - As soon as possible (Get into see Jay dubon this week.) Activity Restrictions/Additional Instructions: Start your new medications diltiazem which is also called Cardizem. And your blood thinner Eliquis. Call and follow-up with the conference services manager office this week. Return if feeling worse. Print Language: Italian Disposition Disposition: Home, Self Care
[2024-11-16 15:59] LABS: Troponin T High Sensitivity 15 ng/L (<=14)
--- NOTE | 2024-11-16 16:13 | PCM.CONS.C ---
Assessment & Plan Assessment/Plan (1) Atrial fibrillation with rapid ventricular response: PLAN: Patient presented with atrial fibrillation with rapid trickle response after being noted to be tachycardic in the physician's office. She was sent to the emergency department where she was evaluated. She received IV Cardizem and then oral Cardizem. Heart rate is come under better control the patient was never having any symptoms. I went over in detail the risk of stroke as her [id number] score equals 2 for her age and female. I would recommend that she be on Eliquis 5 mg twice daily. The patient will also be started on Cardizem CD2 140 mg daily. She should stop her aspirin. The patient should follow-up in the [facility] office with Jay or one of the RY's next week. At that time she will need to consider further evaluation with echocardiography and an ECG will be done to evaluate her rhythm. If she is back in sinus rhythm I would recommend that she have a 14-day event monitor to determine her atrial for burden. PLAN: Plan 1. Will add p.o. Cardizem to the medication list. 2. Start Eliquis 5 mg twice daily she has normal renal function she is 69 years old. 3. Patient will follow-up with ECG in the [facility] office in the next 7 to 10 days early next week. 4. Will determine need for echocardiogram at that office visit pending above evaluation as noted. HPI Consult Data Date of Consult: 11/16/24 HPI Narrative HPI Narrative: FARIDA MORAN, is a 69 F who presents with atrial fibrillation with a rapid regular response. This was picked up and then physician's office earlier today where she is being evaluated after being run over by a horse and having a skull laceration. This event occurred several days ago. She had previously undergone a Holter monitor evaluation which had demonstrated some episodes of supraventricular tachycardia. As part of work-up with primary care provider, she had a 24-hour Holter monitor on 12/02/2021 that showed atrial fibrillation 0.7%, average heart rate 78 bpm, and no ventricular runs. She had echocardiogram on 12/22/2021 that showed ejection function of 55% and normal left and right atrium size. She had a Holter monitor with primary care provider on 04/09/2023 that showed an average heart rate of 86 bpm and atrial fibrillation occurring 4.6% of the time with 4 events. Repeat Holter monitor with PCP in February 2024 showed atrial fibrillation occurring 21.6% with longest episode lasting 1 hour 11 minutes and 6 seconds. The patient admitted reluctant to take oral anticoagulation. She is on no medications in her home environment by her report. However she does have meds listed. The patient's heart rate was in the 120 bpm when she presented to the emergency department. She received IV Cardizem and oral 30 mg Cardizem. Heart rate currently is 95?105. She remains in atrial fibrillation. She is totally unaware that she is in atrial fibs. 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 The patient denies any dyspnea on exertion or shortness of breath denies any chest pain or palpitations she does have a history of palpitations in the past. She also carries a history of knowing that she has intermittently had atrial fibrillation but has not required medical therapy up to this point. The patient denies any lower extremity edema and denies any PND orthopnea. She is really asymptomatic. [facility] Medical History Lyme disease Intermittent palpitations Arthritis Paroxysmal supraventricular tachycardia Anxiety Premature ventricular contractions Anemia Elevated LFTs Lung nodule Liver nodule Hyperlipidemia Frequent PVCs Asthma Obesity GERD (gastroesophageal reflux disease) Home Medications ?Medication ?Instructions ?Recorded ?Last Taken ?Type famotidine 20 mg tablet 20 mg PO BID 12/16/20 11/16/24 History biotin 10,000 mcg chewable tablet 10,000 mcg PO DAILY 06/28/23 11/15/24 History (Hair, Skin and Nails (biotin)) aspirin 81 mg chewable tablet 81 mg PO QDAY 05/27/24 10/06/24 History vitamins A,C,G-okaz-hnlliw 4,296 1 cap PO QDAY 05/27/24 11/15/24 History mcg-226 mg-90 mg capsule (PreserVision AREDS) indapamide 1.25 mg tablet 1.25 mg PO DAILY 10/06/24 11/16/24 History d-mannose 500 mg capsule 500 mg PO DAILY 10/21/24 11/16/24 History apixaban 5 mg tablet (Eliquis) 5 mg PO BID #60 tabs 11/16/24 Unknown Rx diltiazem HCl 180 mg 180 mg PO DAILY #30 caps 11/16/24 Unknown Rx capsule,extended release 24 hr (Cartia XT) Allergy/AdvReac Type Severity Reaction Status Date / Time guaifenesin (From Robitussin) AdvReac Rash Verified 11/16/24 14:36 pseudoephedrine HCl (From AdvReac Swelling Verified 11/16/24 14:36 Actifed) triprolidine HCl (From AdvReac Swelling Verified 11/16/24 14:36 Actifed) Family History Mother Heart disease afib Grandmother Heart disease afib Brother Afib Autoimmune disorder Father Afib Surgical History Status post blepharoplasty History of Social History Smoking Status: Never smoker alcohol intake: never substance use type: does not use caffeine: Yes Type: tea ROS Constitutional Constitutional: Reports as per HPI Eyes Eyes: Reports systems reviewed and no addt'l complaints, except as documented ENT HEENT: Reports systems reviewed and no addt'l complaints, except as documented Cardiovascular Cardiovascular: Reports as per HPI Respiratory/Chest Respiratory/Chest: Reports as per HPI Gastrointestinal Gastrointestinal: Reports systems reviewed and no addt'l complaints, except as documented Genitourinary Genitourinary: Reports systems reviewed and no addt'l complaints, except as documented Musculoskeletal Musculoskeletal: Reports as per HPI Integumentary Integumentary: Reports as per HPI Neurologic Neurologic: Reports systems reviewed and no addt'l complaints, except as documented Psychiatric Psychiatric: Reports systems reviewed and no addt'l complaints, except as documented Endocrine Endocrinology: Reports systems reviewed and no addt'l complaints, except as documented Hematologic/Lymphatic Hematologic/Lymphatic: Reports systems reviewed and no addt'l complaints, except as documented Allergic/Immunologic Allergic/Immunologic: Reports systems reviewed and no addt'l complaints, except as documented Physical Exam Const alert and oriented x3 HEENT normocephalic Eyes EOMs intact bilaterally Neck no JVD and no carotid bruits Chest inspection of chest normal Resp normal respiratory effort and clear to auscultation bilaterally Cardio Rate: tachycardic Rhythm: abnormal rhythm irregularly irregular Heart Sounds: S1 normal and S2 normal; Negative for click, gallop or murmur GI soft to palpation Extremity no pedal edema Neuro Neuro Narrative: Alert and oriented x 3 Psych mental status grossly normal Risk Stratification Risk Stratification Applicable: No Charges/Coding Visit Charges Inpatient E&M: 10345 Init Hosp L2 Objective Data Vital Signs: Vital Signs Temp Pulse Resp BP Pulse Ox O2 Del Method 97.4 F L 88 18 95/71 98 Room Air 11/16/24 14:36 11/16/24 15:53 11/16/24 15:53 11/16/24 15:53 11/16/24 15:53 11/16/24 15:53 Oxygen Delivery Method Room Air Weight: 161 lb 13.109 oz Body Mass Index (BMI) 29.5 Lab / Micro Data Attestation: I reviewed the patient's lab results. 11/16/24 14:45 11/16/24 14:45 Labs: Laboratory Results - last 24 hr 11/16/24 14:45: WBC 8.4, RBC 4.47, Hgb 13.5, Hct 40.8, MCV 91.3, MCH 30.2, MCHC 33.1, RDW Std Deviation 43.4, RDW Coeff of Too 13.1, Plt Count 340, MPV 8.9, Immature Gran % (Auto) 0.200, Neut % (Auto) 65.4, Lymph % (Auto) 23.3, [place] % (Auto) 7.8, Eos % (Auto) 2.7, Baso % (Auto) 0.6, Absolute Neuts (auto) 5.5, Absolute Lymphs (auto) 1.97, Nucleated RBC % 0, Sodium 139, Potassium 3.5, Chloride 102, Carbon Dioxide 24.9, Anion Gap 12, BUN 20 H, Creatinine 0.62 L, Estim Creat Clear Calc 61.38, Est GFR (MDRD) Non-Af 96, BUN/Creatinine Ratio 31.8 H, Glucose 131 H, Calcium 9.5, Troponin T High Sens 15 H, TSH 2.010 Rhythm Strip Rhythm Strip: A-fib Rate: 95 Ectopy: None Cardiology Labs/Tests 11/16/24 14:45: WBC 8.4, RBC 4.47, Hgb 13.5, Hct 40.8, MCV 91.3, MCH 30.2, MCHC 33.1, Plt Count 340, MPV 8.9, Immature Gran % (Auto) 0.200, Neut % (Auto) 65.4, Lymph % (Auto) 23.3, Sl[place] % (Auto) 7.8, Eos % (Auto) 2.7, Baso % (Auto) 0.6, Absolute Neuts (auto) 5.5, Nucleated RBC % 0, Sodium 139, Potassium 3.5, Chloride 102, Carbon Dioxide 24.9, Anion Gap 12, BUN 20 H, Creatinine 0.62 L, Est GFR (MDRD) Non-Af 96, BUN/Creatinine Ratio 31.8 H, Glucose 131 H, Calcium 9.5 Rhythm: EKG: ECHO: Stress Test: Cardiac Cath: PCI: CT Surgery: Holter monitor: EPS: PPM: CXR: Chest CT Scan: EKG Initial EKG: Attestation: I personally reviewed and interpreted this EKG as follows: (Atrial fibrillation rapid trickle response. Minor nonspecific ST-T wave changes.)
[2024-11-16 17:14] LABS: Troponin T High Sens 2 HR 14 ng/L (<=14)
== END 2024-11-16 18:35 | disposition home or self-care (01) ==
PROVIDERS: Emergency Provider Emergency Medicine; PCP Internal Medicine; Visit Provider Emergency Medicine
DX: I48.91 Unspecified atrial fibrillation (principal); S01.00XA Unspecified open wound of scalp, initial encounter; X58.XXXA Exposure to other specified factors, initial encounter; E78.5 Hyperlipidemia, unspecified; J45.909 Unspecified asthma, uncomplicated; R73.9 Hyperglycemia, unspecified; E66.9 Obesity, unspecified; K21.9 Gastro-esophageal reflux disease without esophagitis; Z79.82 Long term (current) use of aspirin; Z79.01 Long term (current) use of anticoagulants; Z79.899 Other long term (current) drug therapy
CPT/HCPCS: 80048; 84443; 84484; 85025; 93005; 96374; 99284; A4216

== ENCOUNTER → 2024-11-27 | Outpatient (CLI) | payer MEDICARE, OTHER, SELFPAY | END | disposition home or self-care (01) | LOC: RAD 14:58 | PROVIDERS: PCP Internal Medicine; Referring Provider Nurse Practitioner Gerontology; Visit Provider Nurse Practitioner Gerontology | DX: I48.0 Paroxysmal atrial fibrillation (principal) | CPT/HCPCS: 71046 ==

== ENCOUNTER 2024-12-22 12:15 | Outpatient (CLI) | payer MEDICARE, OTHER, SELFPAY ==
[2024-11-27 16:18] LABS: Hematocrit 39.3 % (37-47); Hemoglobin 12.9 g/dL (12.0-15.0); Immature Granulocytes Count 0.010 X10^3/uL (0.0-0.0); Mean Corp Hgb Conc 32.8 g/dL (32-36); Mean Corpuscular Volume 90.6 fL (81-99); Mean Platelet Vol. 9.0 fl (6.2-12.0); NRBC Flagged by Analyzer 0 % (0-5); Platelet Count 320 K/mm3 (150-450); RBC Distribution Width CV 13.1 % (11.6-14.6); RBC Distribution Width SD 43.3 fl (35.1-43.9); Red Blood Count 4.34 M/mm3 (4.2-5.4); White Blood Count 7.7 K/mm3 (4.4-11.0)
[2024-11-27 17:16] LABS: Anion Gap 9 (5-15); BUN 22 mg/dL (4-19); BUN/Creat Ratio 21.0 RATIO (10-20); Calcium,Total 9.5 mg/dL (7.6-11.0); Carbon Dioxide 27.5 mmol/L (21.0-32.0); Chloride 102 mmol/L (98-108); Glucose 101 mg/dL (70-99); Potassium 3.8 mmol/L (3.3-5.1)
== END 2024-12-22 19:00 | disposition home or self-care (01) ==
LOC: SDC 03-04 09:58
PROVIDERS: Nurse Practitioner Gerontology; PCP Internal Medicine; Referring Provider Internal Medicine Cardiovascular Disease; Visit Provider Internal Medicine Cardiovascular Disease
DX: Z01.818 Encounter for other preprocedural examination (principal)
CPT/HCPCS: 36415; 80048; 85025

== ENCOUNTER → 2025-03-03 | Outpatient (CLI) | payer MEDICARE, OTHER, SELFPAY ==
[2025-03-03 17:00] LABS: Hematocrit 44.8 % (37-47); Hemoglobin 14.4 g/dL (12.0-15.0); Immature Granulocytes Count 0.030 X10^3/uL (0.0-0.0); Mean Corp Hgb Conc 32.1 g/dL (32-36); Mean Corpuscular Volume 91.1 fL (81-99); Mean Platelet Vol. 9.3 fl (6.2-12.0); NRBC Flagged by Analyzer 0 % (0-5); Platelet Count 330 K/mm3 (150-450); RBC Distribution Width CV 14.3 % (11.6-14.6); RBC Distribution Width SD 47.5 fl (35.1-43.9); Red Blood Count 4.92 M/mm3 (4.2-5.4); White Blood Count 7.4 K/mm3 (4.4-11.0)
[2025-03-03 18:19] LABS: AST(SGOT) 25 U/L (<=31); Alanine Aminotransfer ALT/SGPT 20 U/L (<=34); Albumin, Serum 4.0 g/dL (3.4-4.8); Alkaline Phosphatase 105 U/L (35-104); Anion Gap 10 (5-15); BUN 24 mg/dL (4-19); BUN/Creat Ratio 32.7 RATIO (10-20); Calcium,Total 10.0 mg/dL (7.6-11.0); Carbon Dioxide 27.8 mmol/L (21.0-32.0); Chloride 101 mmol/L (98-108); FOLATES,SERUM (FOLIC ACID) 12.80 ng/mL (4.60-34.80); Globulin 3.3 g/dL (2.2-4.2); Glucose 93 mg/dL (70-99); Potassium 3.9 mmol/L (3.3-5.1); Vitamin B12 761 pg/mL (180-914); Vitamin D,25 Hydroxy 56.5 ng/mL (30-100)
[2025-03-03 18:23] LABS: CRP < 3.00 mg/L (0.0-3.0)
[2025-03-05 14:09] LABS: Lyme Scn Total Ab w/Rflx Negative (Negative)
== END | disposition home or self-care (01) ==
LOC: CIMLAB 15:56
PROVIDERS: PCP Internal Medicine; Referring Provider Internal Medicine; Visit Provider Internal Medicine
DX: E55.9 Vitamin D deficiency, unspecified (principal); W57.XXXA Bitten or stung by nonvenomous insect and other nonvenomous arthropods, initial encounter; R73.03 Prediabetes
CPT/HCPCS: 36415; 80053; 82306; 82607; 82746; 83036; 85025; 85652; 86140; 86617; 86618